=== PATIENT | female | born 1985 | race Caucasian/White ===

== ENCOUNTER 2016-09-07 11:23 | Emergency (ER) | payer BC ==
[2016-09-07 13:14] VITALS: BP 124/78
--- NOTE | 2016-09-07 14:04 | UC ---
Complaint Female HPI - HPI Summary HPI Summary: patient is complaining of pain in the LLQ, she has it quiet often, however, she is having some dysuria took lobo with mild relief, states she has had a lot of sex lately and feels like she has a lot of clear vaginal discharge. - History Of Current Complaint Chief Complaint: UCGU Stated Complaint: BURNING URINATION Time Seen by Provider: 09/07/16 13:22 Hx Obtained From: Patient Hx Last Menstrual Period: tubal Onset/Duration: Lasting Minutes Severity Initially: Mild Severity Currently: Mild Pain Intensity: 6 Pain Scale Used: 0-10 Numeric Character: Sharp, Cramping Aggravating Factor(s): Movement, Urination Associated Signs And Symptoms: Positive: Negative - Risk Factors Ectopic Risk Factor: Negative Ovarian Torsion Risk Factor: Negative - Allergies/Home Medications Allergies/Adverse Reactions: Allergies Allergy/AdvReac Type Severity Reaction Status Date / Time Clindamycin Allergy Severe Hives Verified 04/16/16 15:28 Home Medications: Home Medications Amoxicillin CAP* 500 mg PO TID 09/07/16 [History Confirmed 09/07/16] PMH/Surg Hx/FS Hx/Imm Hx Previously Healthy: Yes Endocrine History Of: Denies: Diabetes, Thyroid Disease Cardiovascular History Of: Denies: Cardiac Disorders, Hypertension Respiratory History Of: Denies: COPD, Asthma GI/ History Of: Denies: Ulcer - Surgical History Surgical History: Yes Surgery Procedure, Year, and Place: TONSILLECTOMY 2013, DENTAL EXTRACTION, TUBAL , TUBAL LIGATION, ECTOPIC SURGERY - Family History Known Family History: Positive: Hypertension - Social History Alcohol Use: Occasionally Alcohol Amount: 0-6/DAY Substance Use Type: None Smoking Status (MU): Never Smoked Tobacco Review of Systems Constitutional: Negative Skin: Negative Eyes: Negative ENT: Negative Respiratory: Negative Cardiovascular: Negative Gastrointestinal: Abdominal Pain Genitourinary: Negative Motor: Negative Neurovascular: Negative Musculoskeletal: Negative Neurological: Negative Psychological: Negative All Other Systems Reviewed And Are Negative: Yes Physical Exam Triage Information Reviewed: Yes Appearance: Well-Nourished, Ill-Appearing, Pain Distress Vital Signs: Initial Vital Signs Temp 98.4 F 09/07/16 13:09 Pulse 81 09/07/16 13:09 Resp 18 09/07/16 13:09 BP 124/78 09/07/16 13:09 Pulse Ox 100 09/07/16 13:09 Vital Signs Reviewed: Yes Eye Exam: Normal Eyes: Positive: Conjunctiva Clear ENT Exam: Normal ENT: Positive: Normal ENT inspection, Pharynx normal, TMs normal Dental Exam: Normal Neck exam: Normal Neck: Positive: Supple, Nontender, No Lymphadenopathy Respiratory Exam: Normal Respiratory: Positive: Chest non-tender, Lungs clear, Normal breath sounds Cardiovascular Exam: Normal Cardiovascular: Positive: RRR, No Murmur, Pulses Normal Abdominal Exam: Normal, Other - LLQ tenderness on palpation, no rebound tenderness, mild general lower abdominal pain Abdomen Description: Positive: No Organomegaly, Soft, Other: - no CVA tenderness Bowel Sounds: Positive: Present Musculoskeletal Exam: Normal Musculoskeletal: Positive: Strength Intact, ROM Intact, No Edema Neurological Exam: Normal Neurological: Positive: Alert, Muscle Tone Normal Psychological Exam: Normal Psychological: Positive: Normal Response To Family, Age Appropriate Behavior Skin Exam: Normal Complaint Female Dx - Course Course Of Treatment: hx obtained, exam performed, UA positive for nitrates, ketones and nitrates, she took azo so difficult to interpret all results, sent for culture. is negative. AFFirm was obtained du to increased vaginal discharge. pateint states she has frequent yeaset infections. medications given for UTI and yeast - Differential Dx/Diagnosis Differential Diagnosis/HQI/PQRI: Sexually Transmitted Disease, Ureteral Stone, Urinary Tract Infection Provider Diagnoses: UTI Discharge - Discharge Plan Condition: Stable Disposition: AGAINST MEDICAL ADVICE Patient Education Materials: Urinary Tract Infection in Women (ED)
== END 2016-09-07 14:20 | disposition home or self-care (01) ==
LOC: UCEAST 11:23
DX: N39.0 Urinary tract infection, site not specified (principal); Z32.02 Encounter for pregnancy test, result negative; Z88.1 Allergy status to other antibiotic agents
CPT/HCPCS: 81002; 81025; 87086; 87480; 87510; 87660; 99212; G0463

== ENCOUNTER 2016-10-23 15:24 | Emergency (ER) | payer BC ==
[2016-10-23 15:57] VITALS: BP 124/74
--- NOTE | 2016-10-23 17:26 | UC ---
Complaint Female HPI - HPI Summary HPI Summary: 30 y/o female c/o thick vaginal discharge, white in appearance. Symptoms have been, "ongoing for the past year. I get a yeast infection about once a month". Patient reports pelvic pain which radiates into the back; "the worst pain I've ever had when we have rough sex"; a increased vaginal discharge x 1 week. Reports the same sex partner x 4 years, states in a monogamous relationship. Denies fever, n/v. - History Of Current Complaint Chief Complaint: UCGU Stated Complaint: YEASTEY DISCHARGE Time Seen by Provider: 10/23/16 17:19 Hx Obtained From: Patient Hx Last Menstrual Period: 10/20/16 Onset/Duration: Gradual Onset - Allergies/Home Medications Allergies/Adverse Reactions: Allergies Allergy/AdvReac Type Severity Reaction Status Date / Time Clindamycin Allergy Severe Hives Verified 10/23/16 15:57 Home Medications: Home Medications NK [No Home Medications Reported] 10/23/16 [History Confirmed 10/23/16] PMH/Surg Hx/FS Hx/Imm Hx Previously Healthy: Yes Endocrine History Of: Denies: Diabetes, Thyroid Disease Cardiovascular History Of: Denies: Cardiac Disorders, Hypertension Respiratory History Of: Denies: COPD, Asthma GI/ History Of: Denies: Ulcer - Surgical History Surgical History: Yes Surgery Procedure, Year, and Place: TONSILLECTOMY 2013, DENTAL EXTRACTION, TUBAL , TUBAL LIGATION, ECTOPIC SURGERY - Family History Known Family History: Positive: Hypertension - Social History Lives: With Family Alcohol Use: Occasionally Alcohol Amount: 0-6/DAY Substance Use Type: None Smoking Status (MU): Never Smoked Tobacco - Immunization History Most Recent Influenza Vaccination: refused Review of Systems Constitutional: Negative Skin: Negative Eyes: Negative ENT: Negative Respiratory: Negative Cardiovascular: Negative Gastrointestinal: Abdominal Pain - Pelvic pain. Worsened before patient has a BM, Other - One hard formed BM every "other or few days". Genitourinary: Other Motor: Negative Neurovascular: Negative Musculoskeletal: Negative Neurological: Negative Psychological: Negative All Other Systems Reviewed And Are Negative: Yes Physical Exam Triage Information Reviewed: Yes Appearance: Well-Appearing, No Pain Distress, Well-Nourished Vital Signs: Initial Vital Signs Temp 99.2 F 10/23/16 15:47 Pulse 90 10/23/16 15:47 Resp 20 10/23/16 15:47 BP 124/74 10/23/16 15:47 Pulse Ox 100 10/23/16 15:47 Vital Signs Reviewed: Yes Eye Exam: Normal Eyes: Positive: Conjunctiva Clear ENT Exam: Normal ENT: Positive: Normal ENT inspection, Hearing grossly normal, Pharynx normal, TMs normal Dental Exam: Normal Dental: Negative: Cervical Lymphadenopathy Neck exam: Normal Neck: Positive: Supple, Nontender Respiratory Exam: Normal Respiratory: Positive: Chest non-tender, Lungs clear, Normal breath sounds, No respiratory distress Cardiovascular Exam: Normal Cardiovascular: Positive: RRR, No Murmur, Pulses Normal Abdominal Exam: Normal Abdomen Description: Positive: Nontender, No Organomegaly, Soft Bowel Sounds: Positive: Present Musculoskeletal Exam: Normal Musculoskeletal: Positive: Strength Intact, ROM Intact, No Edema Neurological Exam: Normal Neurological: Positive: Alert, Muscle Tone Normal, Fatigued Psychological Exam: Normal Skin Exam: Normal - Additional Comments Pelvic examination conducted with Affirm and GC Chlamydia endocervical swabs collected. Thin watery white-yellow discharge coming from the cervical os in present in the vaginal canal. Cervix is smooth and pink, no lesions noted. Pelvic tenderness upon bimanual examination. Rectal hemorrhoid located around 11 o'clock. Diagnostics - Laboratory Diagnostic Studies Completed/Ordered: Pelvic exam Complaint Female Dx - Differential Dx/Diagnosis Differential Diagnosis/HQI/PQRI: Endometriosis, Sexually Transmitted Disease, Urinary Tract Infection Provider Diagnoses: Pelvic pain. Vaginal discharge (suspected BV). Refer to OBGYN to r/o endometriosis Discharge - Discharge Plan Condition: Stable Disposition: HOME Patient Education Materials: Pelvic Pain (ED) [place] [facility] [place]] - As Soon As Possible (Establish OBGYN ad PCP [facility] for further testing) Kim Byrd [Primary Care Provider] - If Needed Additional Instructions: Increase fiber intake: water, fruits, vegetables, and wheat products. May take Metamucil or Colace as needed to regulate bowel movements. Follow up with OBGYN Follow up with a Primary Care provider to have blood work done. As discussed, seek immediate medical care for any symptoms of pelvic inflammatory disease. Will call you regarding lab results and possible treatment.
== END 2016-10-23 18:36 | disposition home or self-care (01) ==
LOC: UCEAST 15:24
DX: R10.2 Pelvic and perineal pain (principal); N89.8 Other specified noninflammatory disorders of vagina; Z88.1 Allergy status to other antibiotic agents
CPT/HCPCS: 81002; 87086; 87480; 87491; 87510; 87591; 87661; 99211; G0463

== ENCOUNTER 2016-11-30 07:27 | Emergency (ER) | payer BC ==
[2016-11-30 07:44] VITALS: BP 129/83
[2016-11-30] MEDS ORDERED: Ondansetron ODT TAB* 4 MG PO ONE (08:13)
[2016-11-30] MEDS ORDERED: Ondansetron INJ* 2 MG/ML VIAL IV ONE (08:16)
[2016-11-30] MEDS ORDERED: NS 0.9% 1000 ML* 1,000 ML IV ONE (08:16)
--- NOTE | 2016-11-30 15:09 | UC ---
Anurag Encarnacion Billy, scribed for Zayda Wallace DO on 11/30/16 at 0827 . General HPI - HPI Summary HPI Summary: Patient is a 31 year-old [place] [facility] [place] 3 days of sinus and chest congestion as well as diffuse abdominal pain, nausea, vomiting, and diarrhea. Her last episode of vomiting and diarrhea was at 0600 this morning , and she states she has had 3-4 episodes of vomiting and diarrhea each day. Vomiting is worse with PO intake. Patient also reports subjective fever, chills , and diaphoresis, as well as sore throat and earache. She also has had a productive cough with yellow-green sputum, although she says that the sputum is becoming clearer with time. Patient also comes in today with a complaint of a painful varicose vein on the right foot, which is a chronic issue. - History of Current Complaint Chief Complaint: UCGI Stated Complaint: V&D, CONGEST/ALSO VARICOSE VEIN Time Seen by Provider: 11/30/16 08:11 Hx Obtained From: Patient Onset/Duration: Gradual Onset Timing: Constant Onset Severity: Moderate Current Severity: Moderate Pain Intensity: 6 Pain Location at: diffuse abdominal pain Character: sore Aggravating: PO intake Associated Signs & Symptoms: Positive: Abdominal Pain, Cough, Diarrhea, Diaphoresis, Fever - subjective, Nausea, Vomiting. Negative: Back Pain, Chest Pain, Edema, Hematemesis, Hemoptysis, SOB, Wheezing - Allergy/Home Medications Allergies/Adverse Reactions: Allergies Allergy/AdvReac Type Severity Reaction Status Date / Time Clindamycin Allergy Severe Hives Verified 10/23/16 15:57 Home Medications: Home Medications Dextromethorphan-Phenylephrine [Daytime Cold & Flu Relief 10-5-325 mg] 1 cap PO 11/30/16 [History] Pseudoephedrine-Guaifenesin [Mucinex D 60-600 mg] 1 tab PO 11/30/16 [History] PMH/Surg Hx/FS Hx/Imm Hx Previously Healthy: Yes Endocrine History Of: Denies: Diabetes, Thyroid Disease Cardiovascular History Of: Denies: Cardiac Disorders, Hypertension Respiratory History Of: Denies: COPD, Asthma GI/ History Of: Denies: Ulcer - Surgical History Surgical History: Yes Surgery Procedure, Year, and Place: TONSILLECTOMY 2013, DENTAL EXTRACTION, TUBAL , TUBAL LIGATION, ECTOPIC SURGERY - Family History Known Family History: Negative: Cardiac Disease, Hypertension, Diabetes - Social History Occupation: Employed Full-time Lives: With Family Alcohol Use: Occasionally Alcohol Amount: 0-6/DAY Substance Use Type: None Smoking Status (MU): Never Smoked Tobacco - Immunization History Most Recent Influenza Vaccination: refused Review of Systems Constitutional: Fever, Chills, Other - diaphoresis Skin: Negative Eyes: Negative ENT: Sore Throat, Ear Ache Respiratory: Cough Cardiovascular: Negative Gastrointestinal: Abdominal Pain, Vomiting, Diarrhea, Other - nausea Genitourinary: Negative Motor: Negative Neurovascular: Negative Musculoskeletal: Other: - Tender varicose vein on the right foot. No swelling or tenderness of the calf. Neurological: Negative Psychological: Negative All Other Systems Reviewed And Are Negative: Yes Physical Exam Triage Information Reviewed: Yes Appearance: Well-Appearing, No Pain Distress, Well-Nourished Vital Signs: Initial Vital Signs Temp 97.9 F 11/30/16 07:36 Pulse 77 11/30/16 07:36 Resp 18 11/30/16 07:36 BP 129/83 11/30/16 07:36 Pulse Ox 97 11/30/16 07:36 Vital Signs Reviewed: Yes Eyes: Positive: Conjunctiva Clear. Negative: Discharge ENT: Positive: Normal ENT inspection, Pharynx normal, TMs normal, Other: - sinusis pain. Negative: Nasal congestion, Nasal drainage, TM bulging, TM dull, TM red, Tonsillar swelling, Tonsillar exudate, Trismus, Muffled/hoarse voice Neck: Positive: Supple, Nontender Respiratory: Positive: Lungs clear, Normal breath sounds, No respiratory distress, No accessory muscle use Cardiovascular: Positive: RRR, No Murmur Abdomen Description: Positive: Soft, McBurney's Point Tenderness, Other: - Tender to the right side of the abdomen with two points of greatest tenderness: 1) just above the umbilical level, and 2) McBurney's Point. Bowel Sounds: Positive: Hyperactive Musculoskeletal: Positive: Strength Intact, No Edema, Other: - Tender varicose vein on the right foot. Neurological: Positive: Alert, Muscle Tone Normal Psychological Exam: Normal Psychological: Positive: Age Appropriate Behavior Skin Exam: Normal, Other - Warm and dry skin. Course/Dx - Course Course Of Treatment: pt re-evaluated s/p 1st liter of fluids. feeling a little better. tenderness in rlq diminished but still present. pt re-eval s/p 2nd liter of fluids. pt feeling much better. no rlq or ruq tenderness. pt asked to jump. jumped up and down 3x with no discomfort. - Differential Dx - Multi-Symptom Differential Diagnoses: Urinary Tract Infection, Other - uri, gastroenteritis, bronchitis, appy Provider Diagnoses: gastroenteritis, sinusitis, bronchospasm, viral syndrom - Physician Notifications Discussed Patient Care With: [facility] Lizarraga [facility] [place] @ 0993: continue to administer IV fluids, and discharge home if the patient feels better. Discharge - Discharge Plan Condition: Stable Disposition: HOME Prescriptions: Albuterol HFA INHALER* [Ventolin HFA Inhaler*] 2 puff INH Q4H PRN #1 mdi PRN Reason: Sob/Wheezing Ondansetron TAB* [Zofran Tab*] 4 mg PO Q6H PRN #10 tab PRN Reason: Nausea/Vomiting guaiFENesin/CODIEN 100MG-10MG* [Robitussin AC 100Mg-10Mg*] 5 - 10 ml PO Q4H PRN #100 udc MDD 10ml PRN Reason: Cough Patient Education Materials: Sinusitis (ED), Upper Respiratory Infection (ED), Gastroenteritis (ED), Viral Syndrome (ED), Bronchospasm (ED) Forms: *Work Release Referrals: [facility] [place] [facility] [Outside] (FOLLOW UP IN 2 DAYS FOR RE-EVALUTION. Follow up sooner if symptoms worsen or new symptoms develop.) Additional Instructions: TRY USING THE NETTI POT IN THE MORNINGS DISCUSSED. YOU MUST ALWAYS USE CLEAN WATER. REMEMBER, POSTURE IS AN IMPORTANT FACTOR IN SINUS DRAINAGE. MOVE YOUR NECK, BREATHE. INHALED BRONCHODILATORS: You have received a prescription for an inhaled bronchodilator -- a medication which stimulates the airways in the lung to dilate. This improves the flow of air in asthma, bronchitis, and emphysema. These medicines have some similarity to adrenaline, and can cause similar side effects: shakiness, racing heart, and a sense of nervousness. These side effects decrease with time. Contact your doctor if these side effects are severe. Do not over-use the medicine. Too-frequent use of the inhaler may make it ineffective. Call your doctor if the inhaler is not controlling your symptoms at the prescribed doses. COUGH-SUPPRESSANT & EXPECTORANT MEDICATION: You are to use a cough medication as needed for relief of symptoms. This medicine is a combination of an expectorant (to make the mucous thinner and more easily "coughed up") and a cough suppressant (to reduce the frequency of coughing). The cough-suppressant medicine is related to narcotics. You may experience mild nausea and sleepiness. Some patients who are very sensitive to narcotics may have stomach pain from this medicine. Taking the medicine with food reduces these side effects. Do not drive or work with machinery until you know how this medicine affects you. The expectorant should have no side effects. Iodine-containing expectorants (such as organidin) should not be taken by persons with active thyroid disease unless approved by your doctor. Call the doctor if you develop shortness of breath, hives, rash, itching, lightheadedness, or severe nausea and vomiting. EXPECTORANT MEDICATION:continue mucinex An expectorant medicine has been prescribed. This type of drug makes mucous thinner, helping the sinuses, nose, and bronchial tubes to remain free of pus and mucous. Expectorants make a cough less severe and more comfortable, and help infected sinuses drain. In general, antihistamines defeat the purpose of the expectorant by making mucous thicker. They should be avoided unless specifically recommended by your physician. TRY JAYNE TEA FOR FOR YOUR NAUSEA AND VOMITING. IF JAYNE DOES NOT ADAQUATELY CONTROL YOUR SYMPTOMS, YOU CAN TRY ZOFRAN. REMEMBER, ZOFRAN CAN BE CONSTIPATING IF YOUR DIARRHEA IS NOT IMPROVING TOMORROW OR THE NEXT DAYS, PLEASE BRING A STOOL SAMPLE FOR TESTING. FOLLOW-UP CARE: You should establish with a private physician for follow-up care in 2 days. If you are unable to get a timely appointment, or if you are worsening, call us or return for re-evaluation. An additional resource available to assist in finding the appropriate physician for your health care needs is the Physician Referral Center. You may contact them by calling [phone]. The documentation as recorded by the Anurag prakash Billy accurately reflects the service I personally performed and the decisions made by me, Zayda Wallace DO.
== END 2016-11-30 11:53 | disposition home or self-care (01) ==
LOC: UCEAST 07:27
DX: K52.9 Noninfective gastroenteritis and colitis, unspecified (principal); J32.9 Chronic sinusitis, unspecified; J98.01 Acute bronchospasm; B34.9 Viral infection, unspecified; Z88.1 Allergy status to other antibiotic agents; Z32.02 Encounter for pregnancy test, result negative
CPT/HCPCS: 81003; 84702; 87502; 96360; 96374; 99212; G0463; J2405

== ENCOUNTER 2016-12-03 07:14 | Emergency (ER) | payer BC ==
--- NOTE | 2016-12-03 07:55 | UC ---
Respiratory Complaint HPI - HPI Summary HPI Summary: The patient comes in today for: 1. Cough: Onset: 6 days ago. Palliative/provocative: Cough medication, albuterol. Quality: Tightness Region: Lungs. Severity: 5/10 Time: Constant. Associated symptoms: Previous treatment: Seen 3 days ago. She was given an inhaler--albuterol. This helped "maybe a little bit." "My chest is still very tight and heavy." She was also given cough medication with codeine which also helped. Chest pain: She complains of a tightness--retrosternal. Heart disease: She denies any heart problems, or use of cocaine. She is not on control. Cough: Green and brown. Rhinitis: Clear. Fevers: Cold chills and hot flashes, but no temperature found at home. Asthma: Never had problems with this before. Previous lung disease: None. Wheezing: None. TB: The patient states that where she has worked in the past, she got yearly PPD tests and they were all normal. However, when she went to a new place, she had a "positive" skin test and "they freaked out--so I just took the medication for 9 months." * - History of Current Complaint Stated Complaint: CHEST CONGEST Time Seen by Provider: 12/03/16 07:50 Hx Obtained From: Patient Hx Last Menstrual Period: 11/09/16 ?: No - Allergies/Home Medications Allergies/Adverse Reactions: Allergies Allergy/AdvReac Type Severity Reaction Status Date / Time Clindamycin Allergy Severe Hives Verified 10/23/16 15:57 PMH/Surg Hx/FS Hx/Imm Hx Previously Healthy: Yes Endocrine History Of: Denies: Diabetes, Thyroid Disease, Hyperthyroidism, Hypothyroidism, Dyslipidemia Cardiovascular History Of: Denies: Cardiac Disorders, Hypertension, Pacemaker/ICD, Myocardial Infarction , Congestive Heart Failure, Atrial Fibrillation, Deep Vein Thrombosis, Bleeding Disorders Respiratory History Of: Denies: COPD, Asthma, Bronchitis, Pneumonia, Pulmonary Embolism GI/ History Of: Denies: Gastroesophageal Reflux, Ulcer, Gastrointestinal Bleed, Gall Bladder Disease, Kidney Stones, Diverticulitis, Renal Disease, Urosepsis Neurological History Of: Denies: TIA, CVA, Dementia, Seizures, Migraine Psychological History Of: Denies: Anxiety, Depression, Bipolar Disorder, Schizophrenia, Post Traumatic Stress Disorder Cancer History Of: Denies: Lung Cancer, Colorectal Cancer, Breast Cancer, Prostate Cancer, Cervical Cancer Other History Of: Negative For: HIV, Hepatitis B, Hepatitis C, Anticoagulant Therapy - Surgical History Surgical History: Yes Surgery Procedure, Year, and Place: TONSILLECTOMY 2013, DENTAL EXTRACTION,TUBAL LIGATION, ECTOPIC SURGERY - Family History Known Family History: Negative: Cardiac Disease, Hypertension, Diabetes - Social History Occupation: Employed Full-time Alcohol Use: Occasionally Alcohol Amount: 2 x month Substance Use Type: None Smoking Status (MU): Never Smoked Tobacco - Immunization History Most Recent Influenza Vaccination: refused Review of Systems Constitutional: Negative Skin: Rash - She has a varicose vein of the right foot. Eyes: Negative ENT: Negative Respiratory: Cough Cardiovascular: Chest Pain - Tightness. Gastrointestinal: Negative Genitourinary: Negative All Other Systems Reviewed And Are Negative: Yes Physical Exam Triage Information Reviewed: Yes Appearance: Well-Appearing, No Pain Distress, Well-Nourished Vital Signs: Initial Vital Signs Temp 99.0 F 12/03/16 07:23 Pulse 66 12/03/16 07:23 Resp 18 12/03/16 07:23 BP 119/70 12/03/16 07:23 Pulse Ox 99 12/03/16 07:23 Vital Signs Reviewed: Yes Eyes: Positive: Conjunctiva Clear. Negative: Discharge ENT: Positive: Hearing grossly normal. Negative: Pharyngeal erythema, Nasal congestion, Nasal drainage, TM bulging, TM dull, TM red, Tonsillar swelling, Tonsillar exudate Neck: Positive: Supple, Nontender, No Lymphadenopathy. Negative: Nuchal Rigidity Respiratory: Positive: Chest non-tender, No respiratory distress, No accessory muscle use, Rhonchi, Wheezing Cardiovascular: Positive: RRR, No Murmur Abdomen Description: Positive: Nontender, No Organomegaly, Soft. Negative: Distended, Guarding Musculoskeletal: Positive: Strength Intact, ROM Intact, No Edema Neurological: Positive: Alert, Muscle Tone Normal Psychological: Positive: Age Appropriate Behavior, Consolable Skin: Negative: rashes, breakdown UC Diagnostic Evaluation - Laboratory O2 Sat by Pulse Oximetry: 99 - Radiology Xray Interpretation: No Acute Changes Radiology Interpretation Completed By: Radiologist Re-Evaluation - Re-Evaluation First Eval Change: Improved - Patient states that the DuoNeb helped. She states that the tightness of her chest had improved. Respiratory Course/Dx - Course Course Of Treatment: Patient told of the negative CXR. Treatment options were discussed. - Differential Dx/Diagnosis Differential Diagnosis/HQI/PQRI: Bronchitis, Sinusitis Provider Diagnoses: Bronchitis. Bronchospasm. Discharge - Discharge Plan Condition: Stable Disposition: HOME Patient Education Materials: Acute Bronchitis (ED), Sinusitis (ED), Bronchospasm (ED) Forms: *Work Release Referrals: No Primary Care Phys,NOPCP [Primary Care Provider] - 1 Week (Please see your primary care provider in about three days to see how well you are doing. If you don't have a primary care provider, please contact the physician referral service. If you can't get in timely, please you may come back to see us until you can. If you get worse, please be seen sooner by us or the ER.) [facility] [place] [facility] [Outside]
[2016-12-03] MEDS ORDERED: Albuterol/Ipratropium NEB.SOL* Albuterol 2.5 MG/Ipratropium 0.5 MG 3 ML INH ONE (08:04)
--- NOTE | 2016-12-03 09:00 | RAD ---
INDICATION: Chest tightness. Cough. Pneumonia. COMPARISON: March 15, 2016 TECHNIQUE: PA and lateral dual-energy views were obtained. FINDINGS: Bones/Soft Tissues: There are no acute bony findings. Cardiomediastinal: The cardiomediastinal silhouette is normal. Lungs: There are no infiltrates. Pleura: There are no pleural effusions. Other: None IMPRESSION: NO ACTIVE DISEASE.
[2016-12-03 09:19] VITALS: BP 116/56
== END 2016-12-03 09:49 | disposition home or self-care (01) ==
LOC: UCEAST 07:14
DX: J40 Bronchitis, not specified as acute or chronic (principal); J98.01 Acute bronchospasm
CPT/HCPCS: 71020; 99212; A9270-GY; G0463

== ENCOUNTER 2016-12-13 15:28 | Emergency (ER) | payer BC ==
[2016-12-13 15:58] VITALS: BP 110/63
[2016-12-13] MEDS ORDERED: Fluorescein Sodium TOPICAL* 1 MG TEST ONE (16:11)
[2016-12-13] MEDS ORDERED: Tetracaine 0.5% OPTH.SOL 15ML* BTL ONE (16:11)
[2016-12-13] MEDS ORDERED: BSS OPTH.SOL* BTL ONE (16:12)
--- NOTE | 2016-12-13 16:34 | UC ---
Eye Complaint HPI - HPI Summary HPI Summary: THREE DAYS OF LEFT EYE REDNESS AND DISCHARGE THIS MORNING WELL IRRITATION OF LEFT EYE. CURRENTLY ON DOXYCYCLINE FOR SINUS INFECTION. NO FEVER. NO CONTACT LENS USE. - History of Current Complaint Chief Complaint: UCEye Stated Complaint: EYE IRRITATION Time Seen by Provider: 12/13/16 16:03 Hx Obtained From: Patient Hx Last Menstrual Period: 12/09/16 Onset/Duration: Sudden Onset, Lasting Days, Still Present Severity Initially: Mild Severity Currently: Moderate Location of Injury: Conjunctiva Character: Dull Aggravating Factor(s): Eye Drops Alleviating Factor(s): Nothing Associated Signs And Symptoms: Positive: Drainage (Clear), Drainage (Purulent) - Risk Factors Penetrating Injury Risk Factor: Negative Acute Glaucoma Risk Factors: Negative - Allergies/Home Medications Allergies/Adverse Reactions: Allergies Allergy/AdvReac Type Severity Reaction Status Date / Time Clindamycin Allergy Severe Hives Verified 12/13/16 15:58 Home Medications: Home Medications Propylene Glycol (Ophth) [Systane Balance Restorati] 1 BOTH EYES PRN 12/13/16 [ History] PMH/Surg Hx/FS Hx/Imm Hx Previously Healthy: Yes Endocrine History Of: Denies: Diabetes, Thyroid Disease, Hyperthyroidism, Hypothyroidism, Dyslipidemia Cardiovascular History Of: Denies: Cardiac Disorders, Hypertension, Pacemaker/ICD, Myocardial Infarction , Congestive Heart Failure, Atrial Fibrillation, Deep Vein Thrombosis, Bleeding Disorders Respiratory History Of: Denies: COPD, Asthma, Bronchitis, Pneumonia, Pulmonary Embolism GI/ History Of: Denies: Gastroesophageal Reflux, Ulcer, Gastrointestinal Bleed, Gall Bladder Disease, Kidney Stones, Diverticulitis, Renal Disease, Urosepsis Neurological History Of: Denies: TIA, CVA, Dementia, Seizures, Migraine Psychological History Of: Denies: Anxiety, Depression, Bipolar Disorder, Schizophrenia, Post Traumatic Stress Disorder Cancer History Of: Denies: Lung Cancer, Colorectal Cancer, Breast Cancer, Prostate Cancer, Cervical Cancer Other History Of: Negative For: HIV, Hepatitis B, Hepatitis C, Anticoagulant Therapy - Surgical History Surgical History: Yes Surgery Procedure, Year, and Place: TONSILLECTOMY 2013, DENTAL EXTRACTION,TUBAL LIGATION, ECTOPIC SURGERY - Family History Known Family History: Negative: Cardiac Disease, Hypertension, Diabetes - Social History Occupation: Employed Full-time Lives: With Family Alcohol Use: Occasionally Alcohol Amount: 2 x month Substance Use Type: None Smoking Status (MU): Never Smoked Tobacco - Immunization History Most Recent Influenza Vaccination: refused Review of Systems Constitutional: Negative Skin: Negative Eyes: Drainage, Eye Redness ENT: Negative Respiratory: Negative Cardiovascular: Negative Gastrointestinal: Negative Genitourinary: Negative Motor: Negative Neurovascular: Negative Musculoskeletal: Negative Neurological: Negative Psychological: Negative All Other Systems Reviewed And Are Negative: Yes Physical Exam Triage Information Reviewed: Yes Appearance: Well-Appearing, No Pain Distress, Well-Nourished Vital Signs: Initial Vital Signs Temp 98.3 F 12/13/16 15:47 Pulse 74 12/13/16 15:47 Resp 18 12/13/16 15:47 BP 110/63 12/13/16 15:47 Pulse Ox 100 12/13/16 15:47 Eyes: Positive: Conjunctiva Inflamed - LATERAL CONJUNCTIVA, Other: - FLUORESCEIN UPTAKE AT 9 OCLOCK ENT Exam: Normal ENT: Positive: Normal ENT inspection, Hearing grossly normal, Pharynx normal, TMs normal Dental Exam: Normal Neck exam: Normal Neck: Positive: Supple, Nontender Respiratory Exam: Normal Respiratory: Positive: Chest non-tender, Lungs clear, Normal breath sounds, No respiratory distress, No accessory muscle use Cardiovascular Exam: Normal Cardiovascular: Positive: RRR, No Murmur Abdominal Exam: Normal Musculoskeletal Exam: Normal Musculoskeletal: Positive: Strength Intact, ROM Intact Neurological Exam: Normal Psychological Exam: Normal Skin Exam: Normal Eye Complaint Course/Dx - Differential Dx/Diagnosis Differential Diagnosis/HQI/PQRI: Conjunctivitis, Corneal Abrasion Provider Diagnoses: LEFT EYE CONJUNCTIVITIS. LEFT EYE CORNEAL ABRASION Discharge - Discharge Plan Condition: Stable Disposition: HOME Prescriptions: Tobramycin 0.3% OPHTH.ROSSI* 1 drop LEFT EYE Q4H #1 btl Patient Education Materials: Corneal Abrasion (ED), Conjunctivitis (ED) Forms: *Work Release Referrals: [facility] [place] PHYSICIAN REFERRAL [Outside] No Primary Care Phys,NOPCP [Primary Care Provider] -
== END 2016-12-13 16:30 | disposition home or self-care (01) ==
LOC: UCEAST 15:28
DX: H10.32 Unspecified acute conjunctivitis, left eye (principal); S05.02XA Injury of conjunctiva and corneal abrasion without foreign body, left eye, initial encounter; X58.XXXA Exposure to other specified factors, initial encounter; Y93.9 Activity, unspecified; Y92.9 Unspecified place or not applicable; Z88.1 Allergy status to other antibiotic agents
CPT/HCPCS: 99212; A9270-GY; G0463

== ENCOUNTER 2016-12-30 17:17 | Emergency (ER) | payer BC ==
[2016-12-30 18:04] VITALS: BP 128/78
--- NOTE | 2016-12-30 19:22 | UC ---
Complaint Female HPI - HPI Summary HPI Summary: PT HAS BEEN ON BOTH AUGMENTIN AND DOXYCYCLINE FOR RESPIRATORY INFECTION IN LAST MONTH. 3 DAYS AGO DEVELOPS THICK, WHITE VAGINAL DISCHARGE AND VAGINAL ITCH/ IRRITATION. TOOK 1 DIFLUCAN 150MG TABLET - NO IMPROVEMENT. SX ACTUALLY WORSENED. NO FEVER OR URINARY SX. - History Of Current Complaint Chief Complaint: UCGU Stated Complaint: YEAST DISCHARGE Time Seen by Provider: 12/30/16 19:02 Hx Obtained From: Patient Hx Last Menstrual Period: 12/06/16 Onset/Duration: Gradual Onset, Lasting Days, Still Present Timing: Constant Severity Initially: Moderate Severity Currently: Moderate Pain Intensity: 7 Pain Scale Used: 0-10 Numeric Character: Burning Aggravating Factor(s): Movement Alleviating Factor(s): Nothing Associated Signs And Symptoms: Positive: Vaginal Discharge. Negative: Fever, Back Pain, Nausea, Vomiting(# Of Episodes =), Genital Swelling, Genital Blisters - Allergies/Home Medications Allergies/Adverse Reactions: Allergies Allergy/AdvReac Type Severity Reaction Status Date / Time Clindamycin Allergy Severe Hives Verified 12/13/16 15:58 PMH/Surg Hx/FS Hx/Imm Hx Previously Healthy: Yes Endocrine History Of: Denies: Diabetes, Thyroid Disease, Hyperthyroidism, Hypothyroidism, Dyslipidemia Cardiovascular History Of: Denies: Cardiac Disorders, Hypertension, Pacemaker/ICD, Myocardial Infarction , Congestive Heart Failure, Atrial Fibrillation, Deep Vein Thrombosis, Bleeding Disorders Respiratory History Of: Denies: COPD, Asthma, Bronchitis, Pneumonia, Pulmonary Embolism GI/ History Of: Denies: Gastroesophageal Reflux, Ulcer, Gastrointestinal Bleed, Gall Bladder Disease, Kidney Stones, Diverticulitis, Renal Disease, Urosepsis Neurological History Of: Denies: TIA, CVA, Dementia, Seizures, Migraine Psychological History Of: Denies: Anxiety, Depression, Bipolar Disorder, Schizophrenia, Post Traumatic Stress Disorder Cancer History Of: Denies: Lung Cancer, Colorectal Cancer, Breast Cancer, Prostate Cancer, Cervical Cancer Other History Of: Negative For: HIV, Hepatitis B, Hepatitis C, Anticoagulant Therapy - Surgical History Surgical History: Yes Surgery Procedure, Year, and Place: TONSILLECTOMY 2013, DENTAL EXTRACTION,TUBAL LIGATION, ECTOPIC SURGERY - Family History Known Family History: Negative: Cardiac Disease, Hypertension, Diabetes - Social History Alcohol Use: Occasionally Alcohol Amount: 2 x month Substance Use Type: None Smoking Status (MU): Never Smoked Tobacco - Immunization History Most Recent Influenza Vaccination: refused Review of Systems Constitutional: Negative Skin: Negative Respiratory: Negative Cardiovascular: Negative Gastrointestinal: Negative Genitourinary: Other - VAGINAL DISCHARGE AND IRRITATION All Other Systems Reviewed And Are Negative: Yes Physical Exam Triage Information Reviewed: Yes Appearance: Well-Appearing, No Pain Distress - BUT LOOKS UNCOMFORTABLE, Well- Nourished Vital Signs: Initial Vital Signs Temp 98.1 F 12/30/16 17:56 Pulse 87 12/30/16 17:56 Resp 18 12/30/16 17:56 BP 128/78 12/30/16 17:56 Pulse Ox 100 12/30/16 17:56 Vital Signs Reviewed: Yes Eyes: Positive: Conjunctiva Clear ENT: Positive: Hearing grossly normal Respiratory: Positive: No respiratory distress, No accessory muscle use Cardiovascular: Positive: Pulses Normal Abdomen Description: Positive: Soft Musculoskeletal: Positive: No Edema Neurological: Positive: Alert Psychological: Positive: Age Appropriate Behavior Skin: Negative: rashes UC Physical Exam Vital Signs On Initial Exam: Initial Vitals Temp Pulse Resp BP Pulse Ox 98.1 F 87 18 128/78 100 12/30/16 17:56 12/30/16 17:56 12/30/16 17:56 12/30/16 17:56 12/30/16 17:56 - Genitalia Exam Female Genitourinary: Normal External Exam, Other - COPIOUS THICK, WHITE DISCHARGE IN VAGINAL VAULT. DIFFUSELY TENDER WITH BIMANUAL EXAM Complaint Female Dx - Differential Dx/Diagnosis Provider Diagnoses: VULVOVAGINAL CANDIDIASIS Discharge - Discharge Plan Condition: Stable Disposition: HOME Prescriptions: Fluconazole [Fluconazole 200 mg tab] 200 mg PO DAILY #14 tab Patient Education Materials: Vulvovaginal Candidiasis (ED) Referrals: Kim Hickman MD [Medical Doctor] - If Needed Additional Instructions: GIVEN YOUR LACK OF RESPONSE TO A ONE TIME DOSE OF DIFLUCAN WILL TRY A DAILY DOSE. FOLLOW-UP WITH COLOR CONTROL OPERATOR IF SYMPTOMS ARE NOT IMPROVING. SWABS SENT TO TEST FOR OTHER FORMS OF VAGINITIS AND GONORRHEA/CHLAMYDIA. WE WILL CALL YOU WITH ANY ABNORMAL RESULTS.
== END 2016-12-30 19:42 | disposition home or self-care (01) ==
LOC: UCEAST 17:17
DX: B37.3 Candidiasis of vulva and vagina (principal); Z88.1 Allergy status to other antibiotic agents
CPT/HCPCS: 87480; 87491; 87510; 87591; 87661; 99212; G0463

== ENCOUNTER 2017-02-02 15:19 | Emergency (ER) | payer BC ==
[2017-02-02 15:46] VITALS: BP 122/64
--- NOTE | 2017-02-02 16:16 | UC ---
Ear Complaint HPI - HPI Summary HPI Summary: Patient presents with complaints of ear pain, throat pain x 3 days, worse when she bends down. No change in hearing. States she is able to eat, drink and handle her own secretion. Denies fever,chills,nausea, vomiting. - History of Current Complaint Chief Complaint: UCEar Stated Complaint: DOUBLE EAR INFECTION Time Seen by Provider: 02/02/17 15:52 Hx Obtained From: Patient Hx Last Menstrual Period: 02/01/17 Onset/Duration: Gradual Onset, Lasting Days Severity Initially: Moderate Severity Currently: Moderate Aggravating Factors: Nothing - bending down/over. - Allergies/Home Medications Allergies/Adverse Reactions: Allergies Allergy/AdvReac Type Severity Reaction Status Date / Time Clindamycin Allergy Severe Hives Verified 02/02/17 15:58 PMH/Surg Hx/FS Hx/Imm Hx Previously Healthy: Yes Endocrine History: Other - deviated septum Other Endocrine History: deviated septum Other History Of: Negative For: HIV, Hepatitis B, Hepatitis C, Anticoagulant Therapy - Surgical History Surgical History: Yes Surgery Procedure, Year, and Place: TONSILLECTOMY 2013, DENTAL EXTRACTION,TUBAL LIGATION, ECTOPIC SURGERY - Family History Known Family History: Negative: Cardiac Disease, Hypertension, Diabetes - Social History Alcohol Use: Occasionally Alcohol Amount: 2 x month Substance Use Type: None Smoking Status (MU): Never Smoked Tobacco - Immunization History Most Recent Influenza Vaccination: refused Review of Systems ENT: Sore Throat, Ear Ache All Other Systems Reviewed And Are Negative: Yes Physical Exam Triage Information Reviewed: Yes Appearance: Well-Appearing Vital Signs: Initial Vital Signs Temp 98.4 F 02/02/17 15:38 Pulse 107 02/02/17 15:38 Resp 18 02/02/17 15:38 BP 122/64 02/02/17 15:38 Pulse Ox 98 02/02/17 15:38 Vital Signs Reviewed: Yes Eye Exam: Normal ENT Exam: Normal Neck exam: Normal Respiratory Exam: Normal Cardiovascular Exam: Normal Abdominal Exam: Normal Musculoskeletal Exam: Normal Neurological Exam: Normal Ear Complaint Course/Dx - Course Course Of Treatment: Patient presents with complaints of ear and throat pain x 3 days. Clinical examination is benign.There is no evidence of otitis media, or strep throat. I feel her symtpoms are related to a deviated septum and I recommend that she take an antihistimine and decongestant and follow up with ENT. At the time of discharge the patient is stable with normal vital signs. - Differential Dx/Diagnosis Differential Diagnosis/HQI/PQRI: Other - deviated septum earache Provider Diagnoses: deviated septum. earache Discharge - Discharge Plan Condition: Stable Disposition: HOME Patient Education Materials: Earache (ED) Referrals: No Primary Care Phys,NOPCP [Primary Care Provider] - John Thorpe MD [Medical Doctor] -
== END 2017-02-02 16:28 | disposition home or self-care (01) ==
LOC: UCEAST 15:19
DX: H92.03 Otalgia, bilateral (principal); J34.2 Deviated nasal septum
CPT/HCPCS: 99211; G0463

== ENCOUNTER 2017-04-22 18:21 | Emergency (ER) | payer BC ==
[2017-04-22 18:45] VITALS: BP 113/60
--- NOTE | 2017-04-22 18:52 | UC ---
Lower Extremity/Ankle HPI - HPI Summary HPI Summary: 31 YEAR OLD FEMALE PRESENTS WITH COMPLAINS OF RIGHT KNEE PAIN AND LEFT THIGH HEMATOMA SECONDARY TO A FALL . - History of Current Complaint Chief Complaint: UCLowerExtremity Stated Complaint: KNEE INJURY Time Seen by Provider: 04/22/17 18:52 Hx Obtained From: Patient Hx Last Menstrual Period: April 20 Onset/Duration: Sudden Onset, Lasting Hours Severity Currently: Moderate Pain Scale Used: 0-10 Numeric - 7 Aggravating Factor(s): Standing, Ambulation Alleviating Factor(s): Rest - Allergies/Home Medications Allergies/Adverse Reactions: Allergies Allergy/AdvReac Type Severity Reaction Status Date / Time Clindamycin Allergy Severe Hives Verified 02/02/17 15:58 Home Medications: Home Medications Acetaminophen [Tylenol] 325 mg PO 04/22/17 [History] Ibuprofen [Advil] 800 mg PO 04/22/17 [History] PMH/Surg Hx/FS Hx/Imm Hx Previously Healthy: Yes Other History Of: Negative For: HIV, Hepatitis B, Hepatitis C, Anticoagulant Therapy - Surgical History Surgical History: Yes Surgery Procedure, Year, and Place: TONSILLECTOMY 2012, DENTAL EXTRACTION,TUBAL LIGATION, ECTOPIC SURGERY - Family History Known Family History: Negative: Cardiac Disease, Hypertension, Diabetes - Social History Alcohol Use: Occasionally Alcohol Amount: 2 x month Substance Use Type: None Smoking Status (MU): Never Smoked Tobacco - Immunization History Most Recent Influenza Vaccination: refused Review of Systems Constitutional: Negative Skin: Negative Eyes: Negative ENT: Negative Respiratory: Negative Cardiovascular: Negative Gastrointestinal: Negative Genitourinary: Negative Motor: Negative Neurovascular: Negative Musculoskeletal: Myalgia, Other: - RIGHT KNEE PAIN Neurological: Negative Psychological: Negative All Other Systems Reviewed And Are Negative: Yes Physical Exam Triage Information Reviewed: Yes Vital Signs: Initial Vital Signs Temp 36.6 C 04/22/17 18:38 Pulse 86 04/22/17 18:38 Resp 16 04/22/17 18:38 BP 113/60 04/22/17 18:38 Pulse Ox 99 04/22/17 18:38 Vital Signs Reviewed: Yes Eye Exam: Normal ENT Exam: Normal Dental Exam: Normal Neck exam: Normal Neck: Positive: 1 Respiratory Exam: Normal Cardiovascular Exam: Normal Abdominal Exam: Normal Musculoskeletal: Positive: Other: - RIGHT KNEE PAIN Neurological Exam: Normal Psychological Exam: Normal Skin Exam: Normal Lower Extremity Course/Dx - Course Course Of Treatment: RIGHT KNEE PAIN/SWELLING - Differential Dx/Diagnosis Provider Diagnoses: RIGHT KNEE PAIN/SWELLING Discharge - Discharge Plan Condition: Stable Disposition: HOME Prescriptions: Meloxicam [Mobic] 7.5 mg PO BID #30 tab Patient Education Materials: Knee Pain (ED) Forms: *Work Release Referrals: Danelle Huntley MD [Medical Doctor] - No Primary Care Phys,NOPCP [Primary Care Provider] -
--- NOTE | 2017-04-22 19:30 | RAD ---
HISTORY: Right knee blunt trauma COMPARISONS: None VIEWS: 5, Frontal, lateral, axial, and oblique views of the right knee FINDINGS: BONE DENSITY: Normal. BONES: There is no displaced fracture. JOINTS: There is no arthropathy. There is no suprapatellar joint effusion or lipohemarthrosis. ALIGNMENT: There is no dislocation. SOFT TISSUES: Unremarkable. OTHER FINDINGS: None. IMPRESSION: NO ACUTE OSSEOUS INJURY. IF SYMPTOMS PERSIST, RECOMMEND REPEAT IMAGING.
== END 2017-04-22 20:19 | disposition home or self-care (01) ==
LOC: UCEAST 18:21
DX: M25.561 Pain in right knee (principal); M25.461 Effusion, right knee; Z88.1 Allergy status to other antibiotic agents
CPT/HCPCS: 99211; G0463

== ENCOUNTER 2017-05-10 08:03 | Emergency (ER) | payer BC ==
[2017-05-10 08:12] VITALS: BP 117/67
--- NOTE | 2017-05-10 09:06 | ED ---
Lower Extremity - HPI Summary HPI Summary: Patient presents to the ED with CC of right medial knee pain and tooth pain. She states her knee has been hurting since she hit the coffee table 2 weeks ago. She was seen in the UC and xrays were taken with no apparent fx. She states she was referred to ortho for an MRI, but has not followed up yet. She has been icing, using ibuprofen and elevating it without improvement. She states she works 16 hour shifts and is worse with ambulation. She also notes to left upper dental pain which has been present for several months after chipping the side of her tooth. She has not followed up with a dentist. Denies any signs of infection. Denies fevers, sweats or chills. - History of Current Complaint Chief Complaint: UCLowerExtremity Stated Complaint: KNEE PAIN DENTAL ISSUE Time Seen by Provider: 05/10/17 08:23 Hx Obtained From: Patient Hx Last Menstrual Period: 04/09/17 Mechanism Of Injury: Twisted Onset of Pain: Days Onset/Duration: Weeks Severity Initially: Moderate Severity Currently: Moderate Pain Intensity: 8 Pain Scale Used: 0-10 Numeric Timing: Constant Location: Is Discrete @ - medial left knee Character Of Pain: Aching Aggravating Factor(s): Movement, Weight Bearing Alleviating Factor(s): Rest Able to Bear Weight: Yes - Risk Factors Gout Risk Factors: Negative DVT Risk Factors: Negative Septic Arthritis Risk Factor: Negative - Allergies/Home Medications Allergies/Adverse Reactions: Allergies Allergy/AdvReac Type Severity Reaction Status Date / Time Clindamycin Allergy Severe Hives Verified 05/10/17 08:05 PMH/Surg Hx/FS Hx/Imm Hx Previously Healthy: Yes Endocrine/Hematology History: Denies: Hx Anticoagulant Therapy, Hx Diabetes, Hx Thyroid Disease Cardiovascular History: Denies: Hx Congestive Heart Failure, Hx Deep Vein Thrombosis, Hx Hypertension , Hx Myocardial Infarction, Hx Pacemaker/ICD Respiratory History: Denies: Hx Asthma, Hx Chronic Obstructive Pulmonary Disease (COPD), Hx Lung Cancer, Hx Pneumonia, Hx Pulmonary Embolism GI History: Denies: Hx Gall Bladder Disease, Hx Gastrointestinal Bleed, Hx Ulcer, Hx Urosepsis History: Denies: Hx Kidney Stones, Hx Renal Disease Neurological History: Denies: Hx Dementia, Hx Migraine, Hx Seizures, Hx Transient Ischemic Attacks (TIA) Psychiatric History: Denies: Hx Anxiety, Hx Depression, Hx Schizophrenia, Hx Bipolar Disorder - Surgical History Surgery Procedure, Year, and Place: TONSILLECTOMY 2013, DENTAL EXTRACTION,TUBAL LIGATION, ECTOPIC SURGERY - Immunization History Hx Pertussis Vaccination: No Immunizations Up to Date: Unable to Obtain/Confirm Infectious Disease History: No Infectious Disease History: Denies: Hx Clostridium Difficile, Hx Hepatitis, Hx Human Immunodeficiency Virus (HIV), Hx of Known/Suspected MRSA, Hx Shingles, Hx Tuberculosis, Hx Known/ Suspected VRE, Hx Known/Suspected VRSA, History Other Infectious Disease, Traveled Outside the [place] in Last 30 Days - Family History Known Family History: Negative: Cardiac Disease, Hypertension, Diabetes - Social History Occupation: Employed Full-time Lives: Alone Alcohol Use: Occasionally Alcohol Amount: 2 x month Hx Substance Use: No Substance Use Type: Reports: None Hx Tobacco Use: No Smoking Status (MU): Never Smoked Tobacco Review of Systems Constitutional: Negative Negative: Fever, Chills, Fatigue Positive: Dental Pain Cardiovascular: Negative Negative: Palpitations, Chest Pain Negative: Shortness Of Breath, Cough Positive: no symptoms reported, see HPI Positive: Arthralgia - medial left knee pain Neurological: Negative Psychological: Normal All Other Systems Reviewed And Are Negative: Yes Physical Exam Triage Information Reviewed: Yes Vital Signs On Initial Exam: Initial Vitals Temp Pulse Resp BP Pulse Ox 98 F 78 18 117/67 99 05/10/17 08:08 05/10/17 08:08 05/10/17 08:08 05/10/17 08:08 05/10/17 08:08 Vital Signs Reviewed: Yes Appearance: Positive: Well-Appearing, Well-Nourished Skin: Positive: Warm, Skin Color Reflects Adequate Perfusion Eyes: Positive: Normal, [place] Dental: Positive: Dental Fracture @ - upper canine Neck: Positive: Supple, No Lymphadenopathy Respiratory/Lung Sounds: Positive: Clear to Auscultation, Breath Sounds Present Cardiovascular: Positive: Normal, Pulses are Symmetrical in both Upper and Lower Extremities Musculoskeletal: Positive: Normal, Strength/ROM Intact Neurological: Positive: Speech Normal Psychiatric: Positive: Normal, Affect/Mood Appropriate AVPU Assessment: Alert - [place] Coma Scale Best Eye Response: 4 - Spontaneous Best Motor Response: 6 - Obeys Commands Best Verbal Response: 5 - Oriented Diagnostics - Vital Signs Vital Signs Temp Pulse Resp BP Pulse Ox 05/10/17 08:08 98 F 78 18 117/67 99 - Laboratory Lab Statement: Any lab studies that have been ordered have been reviewed, and results considered in the medical decision making process. Lower Extremity Course/Dx - Course Course Of Treatment: Patient was evaluted for knee pain. Xrays taken on last visit. She is encouraged to follow up with Dr. Huntley for further evaluation. She is given pain management and dentist referrals. Note given for work. - Diagnoses Differential Diagnosis/HQI/PQRI: Positive: Fracture (Closed), Fracture (Open), Sprain Provider Diagnoses: Knee pain, Toothache Discharge - Discharge Plan Condition: Stable Disposition: HOME Prescriptions: Hydrocodone-Acetaminophen [Hydrocodone/Acetaminophen 10-325 mg] 1 tab PO Q6H # 12 tab MDD 4 Patient Education Materials: Knee Pain (ED), Toothache (ED) Forms: *Work Release Referrals: [facility] [Provider Group] [facility] [Provider Group] Danelle Huntley MD [Medical Doctor] - No Primary Care Phys,NOPCP [Primary Care Provider] - Additional Instructions: Follow up with dentist Obtain a knee brace Follow up with ortho Ibuprofen 600mg three times daily For pain not well controlled with ibuprofen, you may take the [employer] - Images Dental: 1 - cracked
== END 2017-05-10 09:02 | disposition home or self-care (01) ==
LOC: UCEAST 08:03
DX: M25.561 Pain in right knee (principal); K08.89 Other specified disorders of teeth and supporting structures
CPT/HCPCS: 99212; G0463

== ENCOUNTER 2017-09-19 09:19 | Emergency (ER) | payer BC ==
[2017-09-19 09:51] VITALS: BP 127/72
[2017-09-19] MEDS ORDERED: Ondansetron ODT TAB* 4 MG PO ONE (11:40)
--- NOTE | 2017-09-19 12:17 | RAD ---
HISTORY: Cough, fever COMPARISONS: December 03, 2016 VIEWS: 4: Frontal dual-energy and lateral views of the chest. FINDINGS: CARDIOMEDIASTINAL SILHOUETTE: The cardiomediastinal silhouette is normal. AUTUMN: The autumn are normal. PLEURA: The costophrenic angles are sharp. No pleural abnormalities are noted. LUNG PARENCHYMA: The lungs are clear. ABDOMEN: The upper abdomen is clear. There is no subphrenic gas. BONES AND SOFT TISSUES: No bone or soft tissue abnormalities are noted. OTHER: None. IMPRESSION: NO ACTIVE CARDIOPULMONARY DISEASE.
--- NOTE | 2017-09-19 13:25 | UC ---
Viet Encarnacion Stephanie, scribed for Jean Marie Sy MD on 09/19/17 at 1215 . FLU HPI - HPI Summary HPI Summary: The pt is a 31 y/o F presenting to the ED with N/V/D that began on 09/08/17. Symptoms include CP, productive cough, chills, diaphoresis and tooth pain that radiates into the ear and baptist. Pt denies abd pain. The pt reports that she is on abx for her tooth pain. Pt reports that her child was previously diagnosed with RSV. - History of Current Complaint Chief Complaint: UCRespiratory Stated Complaint: DIARRHEA VOMITING CHILLS SORE THROAT CONGESTION Time Seen by Provider: 09/19/17 11:29 Hx Obtained From: Patient Hx Last Menstrual Period: 08/11/17 ?: No Onset/Duration: Lasting Weeks - 2, Still Present Pain Intensity: 0 Pain Scale Used: 0-10 Numeric Associated Signs & Symptoms: Negative: Fever - Allergy/Home Medications Allergies/Adverse Reactions: Allergies Allergy/AdvReac Type Severity Reaction Status Date / Time Clindamycin Allergy Severe Hives Verified 09/19/17 09:46 Home Medications: Home Medications Amoxicillin/Clavulanate TAB* [Augmentin TAB 875*] 875 mg PO BID 09/19/17 [ History Confirmed 09/19/17] PMH/Surg Hx/FS Hx/Imm Hx Previously Healthy: Yes - Denies medical history. Other History Of: Negative For: HIV, Hepatitis B, Hepatitis C, Anticoagulant Therapy - Surgical History Surgical History: Yes Surgery Procedure, Year, and Place: TONSILLECTOMY 2013, DENTAL EXTRACTION,TUBAL LIGATION, ECTOPIC SURGERY - Family History Known Family History: Negative: Cardiac Disease, Hypertension, Diabetes - Social History Occupation: Employed Full-time Lives: With Family Alcohol Use: Occasionally Alcohol Amount: 2 x month Substance Use Type: None Smoking Status (MU): Never Smoked Tobacco - Immunization History Most Recent Influenza Vaccination: refused Review of Systems Constitutional: Chills Skin: Other - diaphoresis Eyes: Negative ENT: Dental Pain - L: radiates to L ear and baptist Respiratory: Cough - productive Cardiovascular: Chest Pain Gastrointestinal: Negative Genitourinary: Negative Motor: Negative Neurovascular: Negative Musculoskeletal: Negative Neurological: Negative Psychological: Negative All Other Systems Reviewed And Are Negative: Yes Physical Exam Triage Information Reviewed: Yes Vital Signs: Initial Vital Signs Temp 99.5 F 09/19/17 09:48 Pulse 87 09/19/17 09:48 Resp 16 09/19/17 09:48 BP 127/72 09/19/17 09:48 Pulse Ox 100 09/19/17 09:48 Vital Signs Reviewed: Yes - Additional Comments General: Mildly ill-appearing, mild pain distress Skin: warm, color reflects adequate perfusion, dry Head: normal Eyes: EOMI, [place] ENT: rhinorrhea, posterior pharynx erythema, L upper molar decay. Neck: supple, nontender Respiratory: Rhonchi bilaterally with breathing, breath sounds present Cardiovascular: RRR Abdomen: soft, nontender Bowel: present Musculoskeletal: normal, strength/ROM intact Neurological: normal, sensory/motor intact, A&O x3 Psychological: affect/mood appropriate Diagnostics - Radiology CXR Xray Interpretation: No Acute Changes Radiology Interpretation Completed By: Radiologist - NO ACTIVE CARDIOPULMONARY DISEASE. Re-Evaluation - Re-Evaluation First Eval Re-Evaluation Time: 13:16 Change: Unchanged - physician discussed CXR results with the pt. Flu Course/Dx - Course Course Of Treatment: Medications reviewed. DIARRHEA STARTED PRIOR TO AMOX. NO ABD PAIN; UNLIKELY C DIFF. F/U PMD; RETURN IF WORSE. - Differential Dx/Diagnosis Provider Diagnoses: BRONCHITIS, VOMITING Discharge - Discharge Plan Condition: Stable Disposition: HOME Prescriptions: Azithromyxin CALIN (NF) [Z-Calin (Zithromax) 250 mg tabs #6] 2 tab PO .TODAY, THEN 1 DAILY #6 tab Ondansetron ODT TAB* [Zofran 4 MG Odt TAB*] 4 mg PO Q6H PRN #15 tab.odt PRN Reason: Nausea Patient Education Materials: Acute Bronchitis (ED), Acute Nausea and Vomiting ( ED) Forms: *Work Release Referrals: Brock Grande MD [Primary Care Provider] - Additional Instructions: FOLLOW UP WITH YOUR DOCTOR THIS WEEK. GET RECHECKED FOR ANY WORSENING OF YOUR CONDITION OR QUESTIONS OR CONCERNS. The documentation as recorded by the Viet prakash Stephanie accurately reflects the service I personally performed and the decisions made by me, Jean Marie Sy MD.
== END 2017-09-19 12:27 | disposition home or self-care (01) ==
LOC: UCEAST 09:19
DX: J40 Bronchitis, not specified as acute or chronic (principal); R11.10 Vomiting, unspecified; Z88.1 Allergy status to other antibiotic agents
CPT/HCPCS: 71046; 99212; A9270-GY; G0463

== ENCOUNTER 2017-10-18 08:09 | Emergency (ER) | payer BC ==
[2017-10-18 08:23] VITALS: BP 109/71
--- NOTE | 2017-10-18 11:18 | UC ---
Buffy Encarnacion Nilda, scribed for Zayda Wallace DO on 10/18/17 at 0838 . Complaint Female HPI - HPI Summary HPI Summary: This patient is a 31 year old F presenting to [facility] with a chief complaint of constant abnormal vaginal itching and burning for the past few days. The patient rates the itching/burning pain 8/10 in severity. Symptoms aggravated and alleviated by nothing including Diflucan. She reports productive cough ( brown, for weeks), and intermittent chronic abd pain secondary to abdominal surgery in 2014. She denies abnormal vaginal discharge and odor. Patient states she was taking Z-dominick (completed) for bronchitis one month ago but symptoms have not resolved. Patient states she's been taking Augmentin intermittently (not as directed-a couple of days at a time) for dental pain/infection for one month in preparation for tooth extraction. She notes whenever she takes abx, she will often have vaginal symptoms. - History Of Current Complaint Chief Complaint: UCRash Stated Complaint: PERSONAL Hx Obtained From: Patient Hx Last Menstrual Period: 10/04/17 Cale Onset/Duration: Sudden Onset, Lasting Days, Still Present Timing: Constant Severity Currently: Severe Pain Intensity: 8 Pain Scale Used: 0-10 Numeric Character: Burning Aggravating Factor(s): Nothing Alleviating Factor(s): Nothing Associated Signs And Symptoms: Negative: Vaginal Discharge Related Hx: Ectopic - Allergies/Home Medications Allergies/Adverse Reactions: Allergies Allergy/AdvReac Type Severity Reaction Status Date / Time clindamycin Allergy Mild Hives Verified 10/18/17 08:23 PMH/Surg Hx/FS Hx/Imm Hx Previously Healthy: Yes Cardiovascular History: Other Other Cardiovascular History: negative HTN for 30s Respiratory History: Other Other Respiratory History: negative asthma for 30s Other History Of: Negative For: HIV, Hepatitis B, Hepatitis C, Anticoagulant Therapy - Surgical History Surgical History: Yes Surgery Procedure, Year, and Place: TONSILLECTOMY 2013, DENTAL EXTRACTION,TUBAL LIGATION, ECTOPIC SURGERY - Family History Known Family History: Negative: Cardiac Disease, Hypertension, Diabetes - Social History Occupation: Employed Full-time Lives: With Family Alcohol Use: Occasionally Alcohol Amount: 2 x month Substance Use Type: None Smoking Status (MU): Never Smoked Tobacco - Immunization History Most Recent Influenza Vaccination: refused Most Recent Tetanus Shot: UTD Review of Systems Respiratory: Cough - brown Gastrointestinal: Abdominal Pain - chronic intermittent Genitourinary: Vaginal/Penile Burning, Vaginal/Penile Itching, Other - negative abnormal vaginal discharge and odor All Other Systems Reviewed And Are Negative: Yes Physical Exam Triage Information Reviewed: Yes Vital Signs: Initial Vital Signs Temp 98.6 F 10/18/17 08:17 Pulse 71 10/18/17 08:17 Resp 20 10/18/17 08:17 BP 109/71 10/18/17 08:17 Pulse Ox 100 10/18/17 08:17 Vital Signs Reviewed: Yes - Additional Comments Appearance: Well-Appearing, No Pain Distress, Well-Nourished Eyes: conjunctiva clear, no discharge ENT: Hearing grossly normal, no muffled/hoarse voice. Neck: Normal, Supple Respiratory/Lung Sounds: Lungs clear, Normal breath sounds, No respiratory distress, No accessory muscle use Cardiovascular: RRR, No murmur Abdomen: Nontender, Soft, no guarding, not distended Bowel Sounds : Present PROGRAM PLANNER: Red, irritated vaginal mucosa with thin white discharge and no noticeable odor. Nurse Kerri present during PROGRAM PLANNER exam. Musculoskeletal: Normal Neurological: Alert, muscle tone normal Psychiatric:Normal, age appropriate behavior Skin: Normal, Warm, Dry, Normal color Complaint Female Dx - Course Course Of Treatment: This patient is a 31 year old F presenting to [facility] with a chief complaint of constant abnormal vaginal itching and burning for the past few days. The patient rates the burning pain 8/10 in severity. Symptoms aggravated and alleviated by nothing including Diflucan. She reports productive cough (brown, for weeks), and intermittent chronic abd pain secondary to abdominal surgery in 2014. She denies abnormal vaginal discharge and odor. Patient states she was taking Z-dominick (completed) for bronchitis one month ago but symptoms have not resolved. Patient states shes been taking Augmentin (a few days at a time, not as directed) for dental pain for one month in preparation for tooth extraction. She notes whenever she takes abx, she will often have vaginal symptoms. UA pending. Patient will be discharged with Dx of vaginitis and follow up from PCP. The patient is agreeable with this plan. Medications reviewed. Allergies reviewed. The patient was advised to take antibiotics as directed. - Differential Dx/Diagnosis Provider Diagnoses: vaginitis Discharge - Discharge Plan Condition: Stable Disposition: HOME Patient Education Materials: Vaginitis (ED) Referrals: Brock Grande MD [Primary Care Provider] - If Needed Additional Instructions: WE ARE SENDING SOME SPECIMENS TO THE LAB FOR TESTING. YOU WILL BE CALLED WITH ABNORMAL RESULTS. The documentation as recorded by the Buffy prakash Nilda accurately reflects the service I personally performed and the decisions made by , Zayda Wallace DO.
--- NOTE | 2017-10-20 12:57 | UC ---
- Progress Note Progress Note: + Jojo + Garnerella no treatment for either Rx for Diflucan, Flagyl Please call pt Pt give alcohol precaution with Saadia gilliam 10/20/2017
== END 2017-10-18 09:52 | disposition home or self-care (01) ==
LOC: UCEAST 08:09
DX: B37.3 Candidiasis of vulva and vagina (principal); R10.9 Unspecified abdominal pain; Z88.1 Allergy status to other antibiotic agents; R05 Cough; Z32.02 Encounter for pregnancy test, result negative
CPT/HCPCS: 81003; 81025; 87086; 87480; 87491; 87510; 87591; 87660; 99211; G0463

== ENCOUNTER 2017-11-09 09:16 | Emergency (ER) | payer BC ==
[2017-11-09 10:23] VITALS: BP 95/62
--- NOTE | 2017-11-09 10:23 | UC ---
Complaint Female HPI - HPI Summary HPI Summary: Pt presents with nausea, loose stools, and vomiting once per day for the last 2 days. Eating and drinking fine today without vomiting. No pain. Also complaining of right eye redness and drainage that started this morning - thinks she may have gotten this from her daughter who has eye redness/drainage. Denies fever, chills, cough, sore throat, headache, dizziness, SOB, chest pain. - History Of Current Complaint Chief Complaint: UCGI Stated Complaint: DIARRHEA/VOMITING Hx Obtained From: Patient Hx Last Menstrual Period: 10/04/17 Cale Onset/Duration: Gradual Onset Severity Initially: Moderate Severity Currently: Moderate Pain Intensity: 6 Pain Scale Used: 0-10 Numeric - Allergies/Home Medications Allergies/Adverse Reactions: Allergies Allergy/AdvReac Type Severity Reaction Status Date / Time clindamycin Allergy Mild Hives Verified 11/09/17 10:23 PMH/Surg Hx/FS Hx/Imm Hx Previously Healthy: Yes Other History Of: Negative For: HIV, Hepatitis B, Hepatitis C, Anticoagulant Therapy - Surgical History Surgical History: Yes Surgery Procedure, Year, and Place: TONSILLECTOMY 2013, DENTAL EXTRACTION,TUBAL LIGATION, ECTOPIC SURGERY - Family History Known Family History: Negative: Cardiac Disease, Hypertension, Diabetes - Social History Occupation: Employed Full-time Lives: With Family Alcohol Use: Occasionally Alcohol Amount: 2 x month Substance Use Type: None Smoking Status (MU): Never Smoked Tobacco - Immunization History Most Recent Influenza Vaccination: refused Most Recent Tetanus Shot: UTD Review of Systems Constitutional: Negative Skin: Negative Eyes: Drainage - Right eye, Eye Redness - Right eye ENT: Negative Respiratory: Negative Cardiovascular: Negative Gastrointestinal: Vomiting, Diarrhea, Nausea Musculoskeletal: Negative Neurological: Negative Psychological: Negative All Other Systems Reviewed And Are Negative: Yes Physical Exam - Summary Physical Exam Summary: GENERAL: NAD. WDWN. No pain distress. SKIN: No rashes, sores, ulcers, masses, lesions. HEENT: Head: AT/NC Eyes: EOM intact. Right eye: Conjunctiva with mild erythema and purulent yellow crust. PERRLA Ears: Hearing grossly normal. TMs intact, no bulging, erythema, or edema. Nose: Nasal mucosa pink and moist. NTTP maxillary and frontal sinus. Throat: Posterior oropharynx without exudates, erythema, or tonsillar enlargement. Uvula midline. NECK: Supple. Nontender. No lymphadenopathy. CHEST: CTAB. No r/r/w. No accessory muscle use. Breathing comfortably and in no distress. CV: RRR. Without m/r/g. Pulses intact. Brisk cap refill. ABDOMEN: Soft. NTTP. No distention or guarding. No organomegaly. No CVA tenderness. Bowel sounds present x4. NEURO: Alert. CN II-XII grossly intact. PSYCH: Age appropriate behavior. Triage Information Reviewed: Yes Vital Signs: Initial Vital Signs Temp 98.0 F 11/09/17 10:19 Pulse 72 11/09/17 10:19 Resp 18 11/09/17 10:19 BP 95/62 11/09/17 10:19 Pulse Ox 98 11/09/17 10:19 Complaint Female Dx - Course Course Of Treatment: Suspect viral gastroenteritis - Zofran. BRAT diet. Fluids. Right eye conjunctivitis. - Differential Dx/Diagnosis Provider Diagnoses: Viral gastroenteritis. Right eye conjunctivitis Discharge - Discharge Plan Condition: Stable Disposition: HOME Prescriptions: Ondansetron ODT TAB* [Zofran 4 MG Odt TAB*] 4 mg PO Q6H PRN #15 tab.odt PRN Reason: Nausea Polymyx/Trimethoprim OPTH* [Polytrim OPHTH*] 1 drop BOTH EYES QID #1 btl Patient Education Materials: Gastroenteritis (DC) Forms: *Work Release Referrals: Brock Grande MD [Primary Care Provider] - Additional Instructions: If you develop a fever, shortness of breath, chest pain, new or worsening symptoms - please call your PCP or go to the ED.
== END 2017-11-09 10:52 | disposition home or self-care (01) ==
LOC: UCEAST 09:16
DX: A08.4 Viral intestinal infection, unspecified (principal); H10.31 Unspecified acute conjunctivitis, right eye; Z88.1 Allergy status to other antibiotic agents
CPT/HCPCS: 99211; G0463

== ENCOUNTER 2017-11-16 07:32 | Emergency (ER) | payer BC ==
[2017-11-16 07:40] VITALS: BP 107/64
--- NOTE | 2017-11-16 08:31 | RAD ---
INDICATION: Cough and fever. COMPARISON: Comparison is made with a prior study from September 19, 2017. TECHNIQUE: Dual-energy PA and lateral views of the chest were obtained. FINDINGS: The heart is within normal limits in size. Mediastinal and hilar contours appear within normal limits. The lungs are clear. No pleural effusion is present. IMPRESSION: NO EVIDENCE FOR ACTIVE CARDIOPULMONARY DISEASE.
--- NOTE | 2017-12-10 14:13 | UC ---
Tulio Encarnacion Jennifer, scribed for Rachel Rider MD on 11/16/17 at 0759 . General HPI - HPI Summary HPI Summary: The patient is a 32 year old female who complains of chest congestion, ear pain , and throat pain for the past week. She additionally complains that she has been coughing a lot and is up all night. She describes the sputum is sometimes clear or sometimes brown. She adds that her nasal discharge is sometimes clear, yellow, or green. The patient also complains of abdominal pain, tight chest pressure, and green diarrhea every time she eats that began yesterday. She explains that she has been taking Sudafed, Dayquil, and Tylenol sinus and cold. - History of Current Complaint Chief Complaint: UCGeneralIllness Stated Complaint: chest congestion Time Seen by Provider: 11/16/17 07:37 Hx Obtained From: Patient Hx Last Menstrual Period: 10/19/17 Onset/Duration: Sudden Onset, Lasting Weeks - 1 week, Still Present Timing: Constant Onset Severity: Moderate Current Severity: Moderate Pain Intensity: 8 Associated Signs & Symptoms: Positive: Other - Chest congestion, ear pain, throat pain, chest pressure, productive cough, nasal discharge, abdominal pain, diarrhea - Allergy/Home Medications Allergies/Adverse Reactions: Allergies Allergy/AdvReac Type Severity Reaction Status Date / Time clindamycin Allergy Mild Hives Verified 11/21/17 14:19 PMH/Surg Hx/FS Hx/Imm Hx Previously Healthy: Yes - NEG: Asthma, HTN Other History Of: Negative For: HIV, Hepatitis B, Hepatitis C, Anticoagulant Therapy - Surgical History Surgical History: Yes Surgery Procedure, Year, and Place: TONSILLECTOMY 2013, DENTAL EXTRACTION,TUBAL LIGATION, ECTOPIC SURGERY - Family History Known Family History: Negative: Cardiac Disease, Hypertension, Diabetes - Social History Alcohol Use: Occasionally Alcohol Amount: 2 x month Substance Use Type: None Smoking Status (MU): Never Smoked Tobacco - Immunization History Most Recent Influenza Vaccination: refused Most Recent Tetanus Shot: UTD Review of Systems Constitutional: Negative Skin: Negative Eyes: Negative ENT: Sore Throat, Ear Ache, Nasal Discharge, Other - Chest congestion Respiratory: Cough Cardiovascular: Other - Chest pressure Gastrointestinal: Abdominal Pain, Diarrhea Genitourinary: Negative Motor: Negative Neurovascular: Negative Musculoskeletal: Negative Neurological: Negative Psychological: Negative All Other Systems Reviewed And Are Negative: Yes Physical Exam - Summary Physical Exam Summary: Appearance: Well-Nourished Eye Exam: Normal ENT Exam: Normal Respiratory Exam: Normal, no dyspnea, no tachypnea, normal respiratory rate Cardiovascular Exam: Normal Cardiovascular: Heart rate regular, good general skin color, good capillary refill Abdominal Exam: Normal Abdomen Description: Nontender, No Organomegaly, Soft Bowel Sounds: Present Musculoskeletal Exam: Normal Musculoskeletal: Strength Intact Neurological Exam: Normal: nonfocal, grossly intact Psychological Exam: Normal: conversing easily and appropriately Skin Exam: Normal: no visible or reported rash Triage Information Reviewed: Yes Appearance: Well-Nourished - looks tired. NAD. Vital Signs: Initial Vital Signs Temp 97.7 F 11/16/17 07:35 Pulse 57 11/16/17 07:35 Resp 18 11/16/17 07:35 BP 107/64 11/16/17 07:35 Pulse Ox 98 11/16/17 07:35 Vital Signs Reviewed: Yes Eye Exam: Normal ENT Exam: Other ENT: Positive: Pharyngeal erythema - mild post redness, c/w cough, Nasal congestion, TM dull Dental Exam: Normal Neck exam: Normal Neck: Positive: Supple, Nontender Respiratory Exam: Other - + rhonchorus cough. no stridor. BS equal Cardiovascular Exam: Normal Cardiovascular: Positive: RRR, No Murmur, Pulses Normal, Brisk Capillary Refill Abdominal Exam: Normal Abdomen Description: Positive: Nontender Musculoskeletal Exam: Normal Neurological Exam: Normal Psychological Exam: Normal Skin Exam: Normal Diagnostics - Radiology CXR Xray Interpretation: No Acute Changes - NO EVIDENCE FOR ACTIVE CARDIOPULMONARY DISEASE. Dr. Rider has reviewed this report. Radiology Interpretation Completed By: Radiologist Course/Dx - Course Course Of Treatment: Reviewed s/sx with pt. Reviewed COA / tx plan. Questions as posed answered to the best of my ability. - Differential Dx - Multi-Symptom Provider Diagnoses: Sinusitis. Bronchitis. Gastroenteritis Discharge - Sign-Out/Discharge Documenting (check all that apply): Discharge - Discharge Plan Condition: Stable Disposition: HOME Patient Education Materials: Sinusitis (ED), Gastroenteritis (ED), Acute Bronchitis (ED) Referrals: Brock Grande MD [Primary Care Provider] - Additional Instructions: Please follow up with your primary care provider per routine. Seek medical attention for worse or new problems in the meantime. Please bring stool sample to the lab at your convenience. - Billing Disposition and Condition Condition: STABLE Disposition: HOME The documentation as recorded by the Tulio prakash Jennifer accurately reflects the service I personally performed and the decisions made by me, Rachel Rider MD.
== END 2017-11-16 08:56 | disposition home or self-care (01) ==
LOC: UCEAST 07:32
DX: J32.9 Chronic sinusitis, unspecified (principal); J40 Bronchitis, not specified as acute or chronic; K52.9 Noninfective gastroenteritis and colitis, unspecified; J45.909 Unspecified asthma, uncomplicated; I10 Essential (primary) hypertension; Z88.1 Allergy status to other antibiotic agents
CPT/HCPCS: 71046; 87651; 99212; G0463

== ENCOUNTER 2017-11-21 14:00 | Emergency (ER) | payer BC ==
[2017-11-21 14:19] VITALS: BP 108/83
--- NOTE | 2017-11-21 15:45 | UC ---
Vivek Encarnacion Natalie, scribed for Jean Marie Sy MD on 11/21/17 at 1544 . Throat Pain/Nasal Iker HPI - HPI Summary HPI Summary: The pt is a 32 y/o F presenting to [facility] c/o sinus congestion for a few days. She was diagnosed with bronchitis last week, and has since become congested. 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 Moore. Pt also c/o of a sore throat, right ear ache, and head pressure that becomes worse when she bends over. The pt's daughter has had similar symptoms. - History of Current Complaint Chief Complaint: UCRespiratory Stated Complaint: COUGH,CONGESTED Time Seen by Provider: 11/21/17 14:35 Hx Obtained From: Patient Hx Last Menstrual Period: 10/19/17 Onset/Duration: Lasting Days Severity: Moderate Pain Intensity: 6 Pain Scale Used: 0-10 Numeric Cough: None Associated Signs & Symptoms: Positive: Sinus Discomfort - Allergies/Home Medications Allergies/Adverse Reactions: Allergies Allergy/AdvReac Type Severity Reaction Status Date / Time clindamycin Allergy Mild Hives Verified 11/21/17 14:19 PMH/Surg Hx/FS Hx/Imm Hx Respiratory History: Bronchitis Other History Of: Negative For: HIV, Hepatitis B, Hepatitis C, Anticoagulant Therapy - Surgical History Surgical History: Yes Surgery Procedure, Year, and Place: TONSILLECTOMY 2012, DENTAL EXTRACTION,TUBAL LIGATION, ECTOPIC SURGERY - Family History Known Family History: Negative: Cardiac Disease, Hypertension, Diabetes - Social History Alcohol Use: Occasionally Alcohol Amount: 2 x month Substance Use Type: None Smoking Status (MU): Never Smoked Tobacco - Immunization History Most Recent Influenza Vaccination: refused Most Recent Tetanus Shot: UTD Review of Systems ENT: Sore Throat, Ear Ache, Sinus Congestion Respiratory: Cough All Other Systems Reviewed And Are Negative: Yes Physical Exam Triage Information Reviewed: Yes Appearance: Well-Appearing, No Pain Distress Vital Signs: Initial Vital Signs Temp 97.9 F 11/21/17 14:14 Pulse 82 11/21/17 14:14 Resp 18 11/21/17 14:14 BP 108/83 11/21/17 14:14 Pulse Ox 99 11/21/17 14:14 Vital Signs Reviewed: Yes Eyes: Positive: Other: - EOMI, [place] ENT: Positive: Other - right sided anterior cervical lymphadenopathy, serous otitis media, positive rhinorrhea, Neck: Positive: Supple, Nontender Respiratory: Positive: Other: - CTA, breath sounds present Cardiovascular: Positive: RRR Abdomen Description: Positive: Nontender, Soft Bowel Sounds: Positive: Present Musculoskeletal Exam: Normal Musculoskeletal: Positive: Strength Intact, ROM Intact Neurological: Positive: Other: - normal, sensory/motor intact, A&O x3 Psychological: Positive: Other: - affect/mood appropriate Skin: Positive: Other - warm, color reflects adequate perfusion, dry Throat Pain/Nasal Course/Dx - Course Course Of Treatment: Medications reviewed. Allergies noted. - Differential Dx/Diagnosis Provider Diagnoses: sinusitis Discharge - Sign-Out/Discharge Documenting (check all that apply): Discharge - Discharge Plan Condition: Stable Disposition: HOME Discharge Disposition Comment: The pt will be discharged home. Prescriptions: Amoxicillin/Clavulanate TAB* [Augmentin TAB 875*] 875 mg PO BID #20 tab Patient Education Materials: Sinusitis (ED) Forms: *Work Release Referrals: Brock Grande MD [Primary Care Provider] - Additional Instructions: FOLLOW UP WITH YOUR DOCTOR. GET RECHECKED FOR ANY WORSENING OF YOUR CONDITION OR QUESTIONS OR CONCERNS. - Billing Disposition and Condition Condition: STABLE Disposition: HOME The documentation as recorded by the Vivek prakash Natalie accurately reflects the service I personally performed and the decisions made by me, Jean Marie Sy MD.
== END 2017-11-21 15:53 | disposition home or self-care (01) ==
LOC: UCEAST 14:00
DX: J32.9 Chronic sinusitis, unspecified (principal); Z88.1 Allergy status to other antibiotic agents
CPT/HCPCS: 99212; G0463

== ENCOUNTER 2017-12-22 17:50 | Emergency (ER) | payer BC ==
[2017-12-22] MEDS ORDERED: Ketorolac INJ* 30 MG/ML 1 ML VIAL IV PUSH ONE (21:08)
[2017-12-22] MEDS ORDERED: Ondansetron INJ* 2 MG/ML VIAL IV ONE (21:08)
[2017-12-22] MEDS ORDERED: NS 0.9% 1000 ML* 1,000 ML IV ONE (21:08)
[2017-12-22 21:47] LABS: ABS Basophils 0 10^3/ul (0-0.2); ABS Eosinophils 0.1 10^3/ul (0-0.6); ABS Lymphocytes 1.5 10^3/ul (1.0-4.8); ABS Monocytes 1.1 10^3/ul (0-0.8); ABS Neutrophils 4.8 10^3/ul (1.5-7.7); ABS Nucleated RBC 0 10^3/ul; Eosinophil % 1.3 % (0-6); Hematocrit 42 % (35-47); Hemoglobin 14.7 g/dl (12.0-16.0); Lymphocyte % 20.4 % (25-47); Mean Corpuscular HGB Conc 35 g/dl (31-36); Mean Corpuscular Hemoglobin 33 pg (27-31); Mean Corpuscular Volume 95 fL (80-97); Mean Platelet Volume 10.2 um3 (7.4-10.4); Nucleated Red Blood Cells % 0; Platelet Count 136 10^3/ul (150-450); Red Blood Count 4.44 10^6/ul (4.0-5.4); Red Cell Distribution Width 13 % (10.5-15); White Blood Count 7.5 10^3/ul (3.5-10.8)
[2017-12-22 22:06] LABS: EGFR Non-African American 78.1 (>60)
[2017-12-22] MEDS ORDERED: Ketorolac INJ* 30 MG/ML 1 ML VIAL ONE (22:56)
[2017-12-22] MEDS ORDERED: Ondansetron INJ* 2 MG/ML VIAL ONE (22:56)
[2017-12-23 00:03] VITALS: BP 113/65
--- NOTE | 2017-12-23 00:58 | ED ---
Patrick Encarnacion Gabriel, scribed for Kodi French MD on 12/22/17 at 2311 . Abdominal Pain/Female - HPI Summary HPI Summary: This patient is a 32 year old F presenting to [facility] with a chief complaint of a general illness that began a week ago. The patient rates the pain 10/10 in severity. Symptoms alleviated by nothing, pt took zofran and motrin with no relief. Patient reports GREGORIO, myalgia, rectal pain, ABD pain, n/v/d, dizziness, light headedness, ear pain, and vaginal pain. LNMP just ended. - History of Current Complaint Chief Complaint: EDGeneral Stated Complaint: GENERAL ILLNESS Time Seen by Provider: 12/22/17 22:54 Hx Obtained From: Patient Hx Last Menstrual Period: 10/19/17 Onset/Duration: Lasting Weeks - 1, Still Present Timing: Constant Severity Initially: Severe Severity Currently: Severe Pain Intensity: 10 Pain Scale Used: 0-10 Numeric Location: Diffuse, Discrete At: LLQ Radiates: No Alleviating Factor(s): Nothing Associated Signs and Symptoms: Positive: Nausea, Vomiting, Diarrhea, Other: - rectal pain, vaginal pain Allergies/Adverse Reactions: Allergies Allergy/AdvReac Type Severity Reaction Status Date / Time clindamycin Allergy Mild Hives Verified 11/21/17 14:19 Home Medications: Home Medications Ondansetron ODT TAB* [Zofran 4 MG Odt TAB*] 4 mg PO Q6H PRN 12/22/17 [History Confirmed 12/22/17] PMH/Surg Hx/FS Hx/Imm Hx Endocrine/Hematology History: Denies: Hx Anticoagulant Therapy, Hx Diabetes, Hx Thyroid Disease Cardiovascular History: Denies: Hx Congestive Heart Failure, Hx Deep Vein Thrombosis, Hx Hypertension , Hx Myocardial Infarction, Hx Pacemaker/ICD Respiratory History: Denies: Hx Asthma, Hx Chronic Obstructive Pulmonary Disease (COPD), Hx Lung Cancer, Hx Pneumonia, Hx Pulmonary Embolism GI History: Denies: Hx Gall Bladder Disease, Hx Gastrointestinal Bleed, Hx Ulcer, Hx Urosepsis History: Denies: Hx Kidney Stones, Hx Renal Disease Sensory History: Denies: Hx Hearing Aid Neurological History: Denies: Hx Dementia, Hx Migraine, Hx Seizures, Hx Transient Ischemic Attacks (TIA) Psychiatric History: Denies: Hx Anxiety, Hx Depression, Hx Panic Disorder, Hx Schizophrenia, Hx Bipolar Disorder - Surgical History Surgery Procedure, Year, and Place: TONSILLECTOMY 2013, DENTAL EXTRACTION,TUBAL LIGATION, ECTOPIC SURGERY Infectious Disease History: No Infectious Disease History: Denies: Hx Clostridium Difficile, Hx Hepatitis, Hx Human Immunodeficiency Virus (HIV), Hx of Known/Suspected MRSA, Hx Shingles, Hx Tuberculosis, Hx Known/ Suspected VRE, Hx Known/Suspected VRSA, History Other Infectious Disease, Traveled Outside the [place] in Last 30 Days - Family History Known Family History: Negative: Cardiac Disease, Hypertension, Diabetes - Social History Lives: With Family Alcohol Use: Occasionally Alcohol Amount: 2 x month Hx Substance Use: No Substance Use Type: Reports: None Hx Tobacco Use: No Smoking Status (MU): Never Smoked Tobacco Review of Systems Positive: Ear Ache Positive: Abdominal Pain, Vomiting, Diarrhea, Nausea, Other - rectal pain Positive: other - vaginal pain Positive: Myalgia Neurological: Other - dizziness, light headedness Positive: Headache All Other Systems Reviewed And Are Negative: Yes Physical Exam - Summary Physical Exam Summary: Appearance: Well appearing, no pain distress Skin: warm, dry, reflects adequate perfusion Head/face: normal Eyes: EOMI, [place] ENT: normal Neck: supple, non-tender Respiratory: CTA, breath sounds present Cardiovascular: RRR, pulses symmetrical Abdomen: soft with mild LLQ pain Bowel Sounds: present Musculoskeletal: normal, strength/ROM intact Neuro: normal, sensory motor intact, A&Ox3 Triage Information Reviewed: Yes Vital Signs On Initial Exam: Initial Vitals Temp Pulse Resp BP Pulse Ox 99.0 F 88 16 121/75 100 12/22/17 18:06 12/22/17 18:06 12/22/17 18:06 12/22/17 18:06 12/22/17 18:06 Vital Signs Reviewed: Yes Diagnostics - Vital Signs Vital Signs Temp Pulse Resp BP Pulse Ox 12/22/17 22:06 100.3 F 108 18 132/74 97 12/22/17 20:06 100.0 F 103 18 138/75 99 12/22/17 18:06 99.0 F 88 16 121/75 100 - Laboratory Lab Results: Lab Results 12/22/17 12/22/17 Range/Units 21:28 21:28 WBC 7.5 (3.5-10.8) 10^3/ul RBC 4.44 (4.0-5.4) 10^6/ul Hgb 14.7 (12.0-16.0) g/dl Hct 42 (35-47) % MCV 95 (80-97) fL MCH 33 H (27-31) pg MCHC 35 (31-36) g/dl RDW 13 (10.5-15) % Plt Count 136 L (150-450) 10^3/ul MPV 10.2 (7.4-10.4) um3 Neut % (Auto) 62.9 (38-83) % Lymph % (Auto) 20.4 L (25-47) % [place] % (Auto) 15.0 H (0-7) % Eos % (Auto) 1.3 (0-6) % Baso % (Auto) 0.4 (0-2) % Absolute Neuts (auto) 4.8 (1.5-7.7) 10^3/ul Absolute Lymphs (auto) 1.5 (1.0-4.8) 10^3/ul Absolute Monos (auto) 1.1 H (0-0.8) 10^3/ul Absolute Eos (auto) 0.1 (0-0.6) 10^3/ul Absolute Basos (auto) 0 (0-0.2) 10^3/ul Absolute Nucleated RBC 0 10^3/ul Nucleated RBC % 0 Sodium 138 L (139-145) mmol/L Potassium 4.2 (3.5-5.0) mmol/L Chloride 102 (101-111) mmol/L Carbon Dioxide 28 (22-32) mmol/L Anion Gap 8 (2-11) mmol/L BUN 10 (6-24) mg/dL Creatinine 0.84 (0.51-0.95) mg/dL Est GFR ( Amer) 100.4 (>60) Est GFR (Non-Af Amer) 78.1 (>60) BUN/Creatinine Ratio 11.9 (8-20) Glucose 103 H (70-100) mg/dL Calcium 9.3 (8.6-10.3) mg/dL Total Bilirubin 0.60 (0.2-1.0) mg/dL AST 35 (13-39) U/L ALT 84 H (7-52) U/L Alkaline Phosphatase 47 (34-104) U/L Total Protein 7.4 (6.4-8.9) g/dL Albumin 4.1 (3.2-5.2) g/dL Globulin 3.3 (2-4) g/dL Albumin/Globulin Ratio 1.2 (1-3) Lipase 15 (11.0-82.0) U/L Result Diagrams: 12/22/17 21:28 12/22/17 21:28 Lab Statement: Any lab studies that have been ordered have been reviewed, and results considered in the medical decision making process. - Radiology ABD Xray Radiology Interpretation Completed By: ED Physician - No acute disease Abdominal Pain Fem Course/Dx - Course Course Of Treatment: Patient is a very frequent visitor of the ER and urgent cares with multiple visits since the beginning of the year. Today she has a myriad of complaints mostly surrounding around GI issues. Laboratories are benign and her KUB shows no constipation or air fluid levels. She is treated symptomatically here with Zofran, IV fluids and Toradol. The room smells heavily of marijuana however the patient denies using the drug. This could cause hyperemesis. I will continue to treat her symptomatically and have her follow closely with her primary care physician. [facility] and [facility] was [facility] on the patient. - Diagnoses Differential Diagnosis: Positive: Bowel Obstruction, Constipation, Irritable Bowel Syndrome, Ovarian Cyst, Pancreatitis, Pelvic Inflammatory Disease Provider Diagnoses: Gastroenteritis Discharge - Sign-Out/Discharge Documenting (check all that apply): Discharge/Admit/Transfer - Discharge Plan Condition: Good Disposition: HOME Prescriptions: Hyoscyamine Sulfate 0.125 mg PO Q6H PRN #20 tablet PRN Reason: abdominal cramping Ondansetron TAB* [Zofran 4 MG Tab*] 4 mg PO Q6H PRN #10 tab PRN Reason: Nausea Patient Education Materials: Gastroenteritis (ED) Referrals: Brock Grande MD [Primary Care Provider] - Additional Instructions: [place] diet, drink plenty of fluids. Return if worse, fevers, persistent vomiting, new symptoms or other concerns. Follow up with her primary care doctor tomorrow. - Billing Disposition and Condition Condition: GOOD Disposition: HOME The documentation as recorded by the Patrick prakash Gabriel accurately reflects the service I personally performed and the decisions made by , Kodi French MD.
--- NOTE | 2017-12-23 08:13 | RAD ---
INDICATION: Diffuse abdominal pain with nausea vomiting and diarrhea. COMPARISON: None TECHNIQUE: 2 views the abdomen were obtained. FINDINGS: There are no acute bony or soft tissue abnormalities. The bowel gas pattern is normal. There is a moderate amount of stool overlying the renal shadows. There are no obvious coarse calcifications overlying the expected location of the bilateral collecting systems or ureters. IMPRESSION:Normal KUB.
== END 2017-12-23 00:12 | disposition home or self-care (01) ==
LOC: ED 17:50
DX: K52.9 Noninfective gastroenteritis and colitis, unspecified (principal); Z88.3 Allergy status to other anti-infective agents
CPT/HCPCS: 36415; 74018; 80053; 83690; 85025; 96374; 96375; 96376; 99283; J1885; J2405

== ENCOUNTER 2017-12-24 13:44 | Emergency (ER) | payer BC ==
[2017-12-24] MEDS ORDERED: diPHENhydraMINE IV* 25 MG in NS 0.9% 50 ML* 50 ML IVPB ONE (16:56)
[2017-12-24] MEDS ORDERED: Metoclopramide IV* 5 MG/ML 2 ML VIAL IV ONE (16:56)
[2017-12-24] MEDS ORDERED: NS 0.9% 1000 ML* 1,000 ML IV ONE (16:57)
[2017-12-24 17:20] LABS: ABS Basophils 0 10^3/ul (0-0.2); ABS Eosinophils 0.2 10^3/ul (0-0.6); ABS Lymphocytes 2.1 10^3/ul (1.0-4.8); ABS Monocytes 0.8 10^3/ul (0-0.8); ABS Neutrophils 3.8 10^3/ul (1.5-7.7); ABS Nucleated RBC 0 10^3/ul; Eosinophil % 2.8 % (0-6); Hematocrit 41 % (35-47); Hemoglobin 13.9 g/dl (12.0-16.0); Lymphocyte % 30.2 % (25-47); Mean Corpuscular HGB Conc 34 g/dl (31-36); Mean Corpuscular Hemoglobin 32 pg (27-31); Mean Corpuscular Volume 95 fL (80-97); Mean Platelet Volume 9.9 um3 (7.4-10.4); Nucleated Red Blood Cells % 0; Platelet Count 152 10^3/ul (150-450); Red Cell Distribution Width 13 % (10.5-15)
--- NOTE | 2017-12-24 17:23 | RAD ---
Indication: Headaches. CT of the brain was performed without IV contrast. There are no prior study available for comparison. Ventricular structures are midline. No midline shift is noted. The extra-axial spaces are unremarkable. There is no evidence of intracranial mass or hemorrhage. No other high or low density lesions are identified. Mastoid air cells and paranasal sinuses demonstrates opacification of the right mastoid air cells consistent with right-sided mastoid sinusitis. Mucosal thickening of the ethmoid air cells is also noted. IMPRESSION: No intracranial mass or hemorrhage is noted. Fluid is noted in the right mastoid air cells consistent with mastoid sinusitis. Mucosal thickening of the middle and anterior ethmoid air cells consistent with chronic sinusitis of the ethmoid.
[2017-12-24 17:36] LABS: EGFR Non-African American 93.3 (>60)
[2017-12-24] MEDS ORDERED: Ketorolac INJ* 30 MG/ML 1 ML VIAL IV PUSH ONE (17:45)
[2017-12-24] MEDS ORDERED: cefTRIAXone(*) 2 GM in NS 0.9% 100 ML* 100 ML IVPB ONE (18:44)
[2017-12-24] MEDS ORDERED: Meclizine TAB* 12.5 MG PO ONE (18:52)
[2017-12-24 20:11] VITALS: BP 122/79
--- NOTE | 2017-12-25 07:29 | ED ---
Michele Encarnacion Julia, scribed for Balwinder Landry MD on 12/24/17 at 1650 . Dizziness - HPI Summary HPI Summary: This patient is a 32 year old F presenting to [facility] with a chief complaint of dizziness and pressure like headache for the past week. Pt was recently seen in ED for similar symptoms, but no imaging was performed. Patient reports vomiting , sweats, chills, body aches, and dark urine, and decreased PO intake. The patient rates the pain 10/10 in severity. Symptoms aggravated by bending over and bring light. Pt was sent here by her PCP. Symptoms are unchanged by 500mg of Tylenol. - History Of Current Complaint Chief Complaint: EDDizziness Stated Complaint: DIZZINESS Time Seen by Provider: 12/24/17 16:41 Hx Obtained From: Patient Onset/Duration: Still Present Timing: Constant Severity Initially: Mild Severity Currently: Moderate Character: Unable To Describe - pressure Aggravating Factor(s): Position Change, Other - lights Associated Signs And Symptoms: Positive: Vomiting, Decreased Oral Intake, Fever , Chills - Allergies/Home Medications Allergies/Adverse Reactions: Allergies Allergy/AdvReac Type Severity Reaction Status Date / Time clindamycin Allergy Mild Hives Verified 11/21/17 14:19 PMH/Surg Hx/FS Hx/Imm Hx Endocrine/Hematology History: Denies: Hx Anticoagulant Therapy, Hx Diabetes, Hx Thyroid Disease Cardiovascular History: Denies: Hx Congestive Heart Failure, Hx Deep Vein Thrombosis, Hx Hypertension , Hx Myocardial Infarction, Hx Pacemaker/ICD Respiratory History: Denies: Hx Asthma, Hx Chronic Obstructive Pulmonary Disease (COPD), Hx Lung Cancer, Hx Pneumonia, Hx Pulmonary Embolism GI History: Denies: Hx Gall Bladder Disease, Hx Gastrointestinal Bleed, Hx Ulcer, Hx Urosepsis History: Denies: Hx Kidney Stones, Hx Renal Disease Sensory History: Denies: Hx Hearing Aid Neurological History: Denies: Hx Dementia, Hx Migraine, Hx Seizures, Hx Transient Ischemic Attacks (TIA) Psychiatric History: Denies: Hx Anxiety, Hx Depression, Hx Panic Disorder, Hx Schizophrenia, Hx Bipolar Disorder - Surgical History Surgery Procedure, Year, and Place: TONSILLECTOMY 2013, DENTAL EXTRACTION,TUBAL LIGATION, ECTOPIC SURGERY Infectious Disease History: No Infectious Disease History: Denies: Hx Clostridium Difficile, Hx Hepatitis, Hx Human Immunodeficiency Virus (HIV), Hx of Known/Suspected MRSA, Hx Shingles, Hx Tuberculosis, Hx Known/ Suspected VRE, Hx Known/Suspected VRSA, History Other Infectious Disease, Traveled Outside the [place] in Last 30 Days - Family History Known Family History: Negative: Cardiac Disease, Hypertension, Diabetes - Social History Lives: With Family Alcohol Use: Occasionally Alcohol Amount: 2 x month Hx Substance Use: No Substance Use Type: Reports: None Hx Tobacco Use: No Smoking Status (MU): Never Smoked Tobacco Review of Systems Positive: Chills, Skin Diaphoresis Positive: Myalgia Positive: Headache All Other Systems Reviewed And Are Negative: Yes Physical Exam - Summary Physical Exam Summary: GENERAL: Patient is a well developed and nourished F who is lying comfortable in the stretcher. Patient is not in any acute respiratory distress. HEAD AND FACE: Normocephalic EYES: PERRLA, EOMI x 2. EARS: Hearing grossly intact. TM clear bilaterally MOUTH: Oropharynx within normal limits. NECK: Supple, trachea is midline, no adenopathy, no JVD, no carotid bruit. CHEST: Symmetric, no tenderness at palpation LUNGS: Clear to auscultation bilaterally. No wheezing or crackles. CVS: Regular rate and rhythm, S1 and S2 present, no murmurs or gallops appreciated. ABDOMEN: Soft, non-tender. Bowel sounds are normal. No abdominal abnormal pulsations. EXTREMITIES: Full ROM in all major joints, no edema, no cyanosis or clubbing. NEURO: Alert and oriented x 3. No acute neurological deficits. Speech is normal and follows commands. SKIN: Dry and warm Triage Information Reviewed: Yes Vital Signs On Initial Exam: Initial Vitals Temp Pulse Resp BP Pulse Ox 97.9 F 66 14 117/56 100 12/24/17 13:48 12/24/17 13:48 12/24/17 13:48 12/24/17 13:48 12/24/17 13:48 Vital Signs Reviewed: Yes Diagnostics - Vital Signs Vital Signs Temp Pulse Resp BP Pulse Ox 12/24/17 15:43 97.8 F 65 14 100/74 100 12/24/17 13:48 97.9 F 66 14 117/56 100 - Laboratory Lab Results: Lab Results 12/24/17 12/24/17 Range/Units 15:37 15:39 Influenza A (Rapid) Negative (Negative) Influenza B (Rapid) Negative (Negative) Group A Strep Rapid Negative (Negative) Result Diagrams: 12/24/17 17:08 12/24/17 17:08 Lab Statement: Any lab studies that have been ordered have been reviewed, and results considered in the medical decision making process. - CT Brain CT CT Interpretation Completed By: Radiologist - No intracranial mass or hemorrhage is noted. Fluid is noted in the right mastoid air cells consistent with mastoid sinusitis. Mucosal thickening of the middle and anterior ethmoid air cells consistent with chronic sinusitis of the ethmoid. ED Physician has reviewed this report. Dizzy Course/Dx - Course Course Of Treatment: 32 y/o F presents to ED for second time with worseing headache described as a pressure sensation. Brain CT shows fluid in R mastoidd ear consistent with mastoid sinusitis. Labs are unremarkable. Consulted Dr. Richard who said he will see pt in office he thinks the CT is an incidental finding as pt does not have otitis media. Pt is ordered for IV fluid, Benadryl, Reglan, Meclizine, and Toradol. Pt will be signed out to Dr. Garza pending re- evaluation after medications. - Diagnoses Provider Diagnoses: Acute headache, Mastoiditis - Provider Notifications Discussed Care Of Patient With: Elie Richard - ENT Time Discussed With Above Provider: 18:50 Instructed by Provider To: Other - will see in office Discharge - Sign-Out/Discharge Documenting (check all that apply): Sign-Out Patient Signing out patient TO: Yi Garza Receiving patient FROM: Balwinder Landry - re-revaluation - Discharge Plan Disposition: HOME Prescriptions: Amoxicillin/Clavulanate TAB* [Augmentin TAB 875*] 875 mg PO BID #20 tab HYDROcodone/ACETAMIN 5-325 MG* [[place] 5-325 TAB*] 1 tab PO Q4H PRN #6 tab MDD 6 PRN Reason: Severe Pain Meclizine TAB* [Antivert 12.5 TAB*] 25 mg PO TID #20 tab Patient Education Materials: Acute Headache (ED), Mastoiditis (ED) Referrals: Elie Richard MD [Medical Doctor] - As Soon As Possible (Follow up with Dr. Richard in his office as soon as possible.) Additional Instructions: Dr. Landry spoke with Dr. Richard, the environmental research scientist. He will see you in follow up. He thinks the fluid in the mastoid is possibly an incidental finding, but advises that we treat it, and have you follow up. You were given your first dose of antibiotics via IV, ceftriaxone 2gms. You also had meclizine, benadryl, toradol and reglan and IV fluids for your symptoms while you were in the ER. You should start Augmentin 875mg twice a day for 10 days in the am. We also prescribed meclizine that you may take for dizziness, and hydrocodone that you may cautiously for severe pain. They are at [facility] in [place]. Return to the ER if you have new or worsening symptoms. - Billing Disposition and Condition Disposition: HOME The documentation as recorded by the Michele prakash Julia accurately reflects the service I personally performed and the decisions made by me, Balwinder Landry MD.
--- NOTE | 2017-12-25 08:58 | ED ---
Jose Daniel Encarnacion Tiffany, scribed for Yi Garza MD on 12/24/17 at 2002 . Progress - Progress Note Progress Note: Patient signed out from Dr. Landry awaiting results of pain medications. States that she does not feel 100% but does feel better than when she came in. Rates pain 5/10 in severity upon evaluation. Reports dizziness but not as bad as before. Patient given update on test/lab results and discharge plan. Advised to follow up with ENT. Physical Exam: Pt alert, mild pain distress. HEENT: Pain behind right ear. PERRL EOMI. Neck supple Cor S1S2 lungs clear. Extrem: moves all extrem well. Neuro: non focal, speech clear. Ambulatory without limp. Course/Dx - Course Course Of Treatment: Allergies noted. Patients medications reviewed this visit. Patient is signed out from Dr. Landry. Upon evaluation, patient states feeling better than she did before she came in. Discussed test results and discharge plan with patient. She will be sent home with prescriptions for Augmentin, Thompson, Antivert. Patient agreeable to discharge. Advised to follow up with ENT, definite. - Diagnoses Provider Diagnoses: Acute headache, Mastoiditis Discharge - Sign-Out/Discharge Documenting (check all that apply): Discharge/Admit/Transfer - home - Discharge Plan Condition: Stable Disposition: HOME Prescriptions: Amoxicillin/Clavulanate TAB* [Augmentin TAB 875*] 875 mg PO BID #20 tab HYDROcodone/ACETAMIN 5-325 MG* [Thompson 5-325 TAB*] 1 tab PO Q4H PRN #6 tab MDD 6 PRN Reason: Severe Pain Meclizine TAB* [Antivert 12.5 TAB*] 25 mg PO TID #20 tab Patient Education Materials: Acute Headache (ED), Mastoiditis (ED) Referrals: Elie Richard MD [Medical Doctor] - As Soon As Possible (Follow up with Dr. Richard in his office as soon as possible.) Additional Instructions: Dr. Landry spoke with Dr. Richard, the research methodologist. He will see you in follow up. He thinks the fluid in the mastoid is possibly an incidental finding, but advises that we treat it, and have you follow up. You were given your first dose of antibiotics via IV, ceftriaxone 2gms. You also had meclizine, benadryl, toradol and reglan and IV fluids for your symptoms while you were in the ER. You should start Augmentin 875mg twice a day for 10 days in the am. We also prescribed meclizine that you may take for dizziness, and hydrocodone that you may cautiously for severe pain. They are at [facility] in [place]. Return to the ER if you have new or worsening symptoms. - Billing Disposition and Condition Condition: STABLE Disposition: HOME The documentation as recorded by the Jose Daniel prakash Tiffany accurately reflects the service I personally performed and the decisions made by me, Yi Garza MD.
== END 2017-12-24 20:08 | disposition home or self-care (01) ==
LOC: ED 13:44
DX: R51 Headache (principal); H70.90 Unspecified mastoiditis, unspecified ear; R42 Dizziness and giddiness
CPT/HCPCS: 36415; 70450; 80053; 84702; 85025; 86308; 87502; 87651; 96365; 96374; 96375; 99283; A9270-GY; J0696; J1200; J1885; J2765

== ENCOUNTER 2018-06-13 09:30 | Emergency (ER) | payer BC ==
[2018-06-13 09:40] VITALS: BP 98/68
--- NOTE | 2018-06-13 10:17 | UC ---
Throat Pain/Nasal Iker HPI - HPI Summary HPI Summary: 32-year-old woman comes in with sinus congestion and sinus pressure ear pain. Symptoms started as upper respiratory tract infection symptoms about 3 weeks ago. The symptoms continued and gotten worse. She's had some chills no fevers. She was using Flonase nasal spray that made her nose feels well also she stopped. She is not a smoker. - History of Current Complaint Chief Complaint: UCEar Stated Complaint: EAR ACHE Time Seen by Provider: 06/13/18 09:57 Hx Last Menstrual Period: 10/19/17 Pain Intensity: 7 - Allergies/Home Medications Allergies/Adverse Reactions: Allergies Allergy/AdvReac Type Severity Reaction Status Date / Time clindamycin Allergy Mild Hives Verified 06/13/18 09:41 Home Medications: Home Medications Pseudoephedrine HCl [Sudafed] 30 mg PO 06/13/18 [History] PMH/Surg Hx/FS Hx/Imm Hx Other History Of: Negative For: HIV, Hepatitis B, Hepatitis C, Anticoagulant Therapy - Surgical History Surgical History: Yes Surgery Procedure, Year, and Place: TONSILLECTOMY 2013, DENTAL EXTRACTION,TUBAL LIGATION, ECTOPIC SURGERY - Family History Known Family History: Negative: Cardiac Disease, Hypertension, Diabetes - Social History Alcohol Use: Occasionally Alcohol Amount: 2 x month Substance Use Type: None Smoking Status (MU): Never Smoked Tobacco - Immunization History Most Recent Influenza Vaccination: refused Most Recent Tetanus Shot: UTD Review of Systems Constitutional: Chills Skin: Negative Eyes: Negative ENT: Sore Throat, Ear Ache, Nasal Discharge, Sinus Congestion Respiratory: Cough Cardiovascular: Negative Gastrointestinal: Negative Motor: Negative Neurovascular: Negative Musculoskeletal: Negative Neurological: Negative Psychological: Negative Is Patient Immunocompromised?: No All Other Systems Reviewed And Are Negative: Yes Physical Exam Triage Information Reviewed: Yes Appearance: Well-Appearing, No Pain Distress, Well-Nourished Vital Signs: Initial Vital Signs Temp 97.5 F 06/13/18 09:35 Pulse 66 06/13/18 09:35 Resp 18 06/13/18 09:35 BP 98/68 06/13/18 09:35 Pulse Ox 99 06/13/18 09:35 Vital Signs Reviewed: Yes Eye Exam: Normal Eyes: Positive: Conjunctiva Clear ENT: Positive: Pharyngeal erythema, Nasal congestion, Nasal drainage, TM dull Neck exam: Normal Neck: Positive: Supple Respiratory Exam: Normal Respiratory: Positive: Lungs clear, Normal breath sounds, No respiratory distress Cardiovascular: Positive: RRR Musculoskeletal Exam: Normal Musculoskeletal: Positive: Strength Intact, ROM Intact Neurological Exam: Normal Neurological: Positive: Alert, Muscle Tone Normal Psychological Exam: Normal Psychological: Positive: Age Appropriate Behavior Skin Exam: Normal Throat Pain/Nasal Course/Dx - Course Course Of Treatment: SX > 10 DAYS. Patient has been on the inhaler breo ellipta which is helped with her asthma/cough for the past. She's run out of that prescription I'm going to prescribe her another today. Follow-up with primary care doctor recheck sooner if worse. - Differential Dx/Diagnosis Provider Diagnoses: SINUSITIS Discharge - Sign-Out/Discharge Documenting (check all that apply): Patient Departure All imaging exams completed and their final reports reviewed: No Studies - Discharge Plan Condition: Stable Disposition: HOME Prescriptions: Amoxicillin/Clavulanate TAB* [Augmentin TAB 875*] 875 mg PO BID #20 tab Fluticasone/Vilanterol MDI(NF) [Breo Ellipta MDI 200/25(NF)] 1 inh PO DAILY #1 inh Patient Education Materials: Sinusitis (ED), Asthma (ED) Referrals: Brock Grande MD [Primary Care Provider] - Additional Instructions: FOLLOW UP WITH YOUR DOCTOR IF NOT COMPLETELY IMPROVED. GET RECHECKED FOR ANY WORSENING OF YOUR CONDITION OR QUESTIONS OR CONCERNS. - Billing Disposition and Condition Condition: STABLE Disposition: Home
== END 2018-06-13 10:25 | disposition home or self-care (01) ==
LOC: UCEAST 09:30
DX: J32.9 Chronic sinusitis, unspecified (principal); J45.909 Unspecified asthma, uncomplicated; Z88.1 Allergy status to other antibiotic agents
CPT/HCPCS: 99212; G0463

== ENCOUNTER 2018-08-24 07:44 | Emergency (ER) | payer BC ==
[2018-08-24 07:57] VITALS: BP 117/67
--- NOTE | 2018-08-24 08:25 | UC ---
Dental HPI - HPI Summary HPI Summary: 32 yo W female h/o severe dental caries in tooth #15 (left 2nd molar) p/w with left facial pain and tenderness worsened over last 2-3 days but pain was present for 2 months. States she needs to have her tooth pulled but never got around to it.Pain is severe, radiates to maxilla and below left mandible - History of Current Complaint Chief Complaint: UCDentalProblem Stated Complaint: DENTAL PAIN Time Seen by Provider: 08/24/18 08:08 Hx Obtained From: Patient Hx Last Menstrual Period: yesterday end date ?: No Onset/Duration: Sudden Onset, Lasting Days Severity: Severe Pain Intensity: 10 Aggravating Factor(s): Chewing Alleviating Factor(s): Nothing Related History: Previous Dental Care on Same Tooth - Allergies/Home Medications Allergies/Adverse Reactions: Allergies Allergy/AdvReac Type Severity Reaction Status Date / Time clindamycin Allergy Mild Hives Verified 06/13/18 09:41 Home Medications: Home Medications Meclizine TAB* [Antivert 12.5 TAB*] 25 mg PO TID PRN 08/24/18 [History] PMH/Surg Hx/FS Hx/Imm Hx Other History Of: Negative For: HIV, Hepatitis B, Hepatitis C, Anticoagulant Therapy - Surgical History Surgical History: Yes Surgery Procedure, Year, and Place: TONSILLECTOMY 2013, DENTAL EXTRACTION,TUBAL LIGATION, ECTOPIC SURGERY - Family History Known Family History: Negative: Cardiac Disease, Hypertension, Diabetes - Social History Alcohol Use: Occasionally Alcohol Amount: 2 x month Substance Use Type: None Smoking Status (MU): Never Smoked Tobacco - Immunization History Most Recent Influenza Vaccination: refused Most Recent Tetanus Shot: UTD Review of Systems All Other Systems Reviewed And Are Negative: Yes Constitutional: Positive: Negative Skin: Positive: Negative Eyes: Positive: Negative ENT: Positive: Dental Pain Respiratory: Positive: Negative Cardiovascular: Positive: Negative Gastrointestinal: Positive: Negative Genitourinary: Positive: Negative Motor: Positive: Negative Neurovascular: Positive: Negative Musculoskeletal: Positive: Negative Neurological: Positive: Negative Psychological: Positive: Negative Physical Exam - Summary Physical Exam Summary: Vital Signs Reviewed: Yes Skin: Positive: Warm Head/Face: Positive: Normal Head/Face Inspection Eyes: Positive: Normal ENT: Positive: Tooth #15- broken off black caries with gingival inflammation Neck: Positive: Supple Respiratory/Lung Sounds: Positive: Clear to Auscultation Cardiovascular: Positive: Normal, RRR, S1, S2 Abdomen Description: Positive: Nontender Musculoskeletal: Positive: Normal Neurological: Positive: Normal Psychiatric: Positive: Normal, Affect/Mood Appropriate Vital Signs: Initial Vital Signs Temp 36.4 C 08/24/18 07:51 Pulse 70 08/24/18 07:51 Resp 16 08/24/18 07:51 BP 117/67 08/24/18 07:51 Pulse Ox 100 08/24/18 07:51 Dental Complaint Course/Dx - Differential Dx/Diagnosis Differential Diagnosis/Dx: Dental Abscess, Dental Caries, Fractured Tooth Provider Diagnosis: Tooth pain, Dental abscess Discharge - Sign-Out/Discharge Documenting (check all that apply): Patient Departure All imaging exams completed and their final reports reviewed: Yes - Discharge Plan Condition: Stable Disposition: HOME Prescriptions: Amoxicillin/Clavulanate TAB* [Augmentin TAB 875*] 875 mg PO BID 10 Days tab NS oxyCODONE/Acetamin 5/325 MG* [Percocet 5/325 TAB*] 1 tab PO Q8H PRN 3 Days #13 tab MDD 3 PRN Reason: Pain Patient Education Materials: Dental Abscess (ED) Forms: *Work Release Referrals: Brock Grande MD [Primary Care Provider] - Additional Instructions: follow up with dentist [facility] - Billing Disposition and Condition Condition: STABLE Disposition: Home
== END 2018-08-24 08:31 | disposition home or self-care (01) ==
LOC: UCEAST 07:44
DX: K04.7 Periapical abscess without sinus (principal); K08.89 Other specified disorders of teeth and supporting structures; Z88.1 Allergy status to other antibiotic agents
CPT/HCPCS: 99212; G0463

== ENCOUNTER 2018-12-08 15:41 | Emergency (ER) | payer BC ==
[2018-12-08 17:25] VITALS: BP 124/63
--- NOTE | 2018-12-08 17:32 | UC ---
Throat Pain/Nasal Iker HPI - HPI Summary HPI Summary: 33 y/o female presents to the urgent care c/o sinus congestion, sore throat, ears congested, chest congestion, dizzy when bending over, took inhalation of Abrio with some relief. Has chills. States symptoms for 10 days. Taking Mucinex, Benadryl. Also left upper jaw pain from bad tooth, seen previouslly for antibiotic and pain meds 1 month ago. - History of Current Complaint Chief Complaint: UCGeneralIllness Stated Complaint: EAR ACHE, AND SORE THROAT Time Seen by Provider: 12/08/18 17:19 Hx Obtained From: Patient Hx Last Menstrual Period: 2 days ago Pain Intensity: 9 - Allergies/Home Medications Allergies/Adverse Reactions: Allergies Allergy/AdvReac Type Severity Reaction Status Date / Time clindamycin Allergy Mild Hives Verified 12/08/18 17:25 PMH/Surg Hx/FS Hx/Imm Hx Other History Of: Negative For: HIV, Hepatitis B, Hepatitis C, Anticoagulant Therapy - Surgical History Surgical History: Yes Surgery Procedure, Year, and Place: TONSILLECTOMY 2012, DENTAL EXTRACTION,TUBAL LIGATION, ECTOPIC SURGERY. anxiety - Family History Known Family History: Negative: Cardiac Disease, Hypertension, Diabetes - Social History Alcohol Use: Rare Alcohol Amount: 2 x month Substance Use Type: None Smoking Status (MU): Never Smoked Tobacco - Immunization History Most Recent Influenza Vaccination: refused Most Recent Tetanus Shot: UTD Physical Exam Vital Signs: Initial Vital Signs Temp 98.1 F 12/08/18 17:20 Pulse 63 12/08/18 17:20 Resp 17 12/08/18 17:20 BP 124/63 12/08/18 17:20 Pulse Ox 98 12/08/18 17:20 Throat Pain/Nasal Course/Dx - Differential Dx/Diagnosis Differential Diagnosis/HQI/PQRI: Influenza, Laryngitis, Sinusitis, URI, Other - toothache, dental abscess Provider Diagnosis: Acute bacterial sinusitis, Toothache Discharge - Discharge Plan Condition: Stable Disposition: HOME Prescriptions: Amoxicillin PO (*) [Amoxicillin 875 MG (*)] 875 mg PO BID #20 tab Fluticasone NASAL SPRAY 50MCG* [Flonase NASAL SPRAY 50MCG*] 2 spray BOTH NARES DAILY #1 btl Ibuprofen TAB* [Motrin TAB* 800 MG] 800 mg PO Q6H PRN #30 tab PRN Reason: Pain Patient Education Materials: Sinusitis (ED), Toothache (ED) Referrals: Brock Grande MD [Primary Care Provider] - 3 Days Additional Instructions: 1- Please increase fluid intake and rest. take full course of antibiotic to avoid resistance. Take yogurt w/ probiotics or culturelle to protect your GI system 2-Use Flonase as directed to help drain fluid. Also buy saline drops to clear sinuses 3-Take Ibuprofen PO q6-8hrs prn after meals to alleviate pain. Please f/u w/ your Dentist as soon as possible for furtehr management in your fracture molar 4-F/u w/ your PCP in 3 days if symptoms do not improve for further management and treatment - Billing Disposition and Condition Condition: STABLE Disposition: Home
== END 2018-12-08 18:00 | disposition home or self-care (01) ==
LOC: UCEAST 15:41
DX: J01.90 Acute sinusitis, unspecified (principal); K08.89 Other specified disorders of teeth and supporting structures; Z88.1 Allergy status to other antibiotic agents
CPT/HCPCS: 99212; G0463

== ENCOUNTER 2019-03-28 17:30 | Emergency (ER) | payer BC ==
[2019-03-28 17:58] VITALS: BP 115/72
--- NOTE | 2019-03-28 18:00 | UC ---
Throat Pain/Nasal Iker HPI - HPI Summary HPI Summary: 33 yo female presents with sinus pain/pressure/congestion, post nasal drip, and dry cough for the last 1.5 weeks. She has tried alicia seltzer, flonase, and sudafed with little relief of her symptoms. Today she had a few episodes of loose stools and decreased appetite. She has felt feverish, but has not taken her temperature. She denies SOB, chest pain, abdominal pain, vomiting, dysuria, flank or back pain. She also mentions that 1 month ago she was hit in the right lower leg with a softball and since that time has had pain in her calf and has noticed a lump that wont go down to her anterior hu. Painful to touch. - History of Current Complaint Chief Complaint: UCRespiratory Stated Complaint: SINUS CONGESTION Time Seen by Provider: 03/28/19 17:59 Hx Obtained From: Patient Hx Last Menstrual Period: 1 WEEK AGO Onset/Duration: Gradual Onset Severity: Severe Pain Intensity: 10 Pain Scale Used: 0-10 Numeric - Allergies/Home Medications Allergies/Adverse Reactions: Allergies Allergy/AdvReac Type Severity Reaction Status Date / Time clindamycin Allergy Mild Hives Verified 03/28/19 17:58 Home Medications: Home Medications Dm/PE/Acetaminophen/Doxylamine [Alicia-Mays Plus Allerg-Cough] 1 each PO ONCE PRN 03/28/19 [History Confirmed 03/28/19] Pseudoephedrine TAB* [Sudafed TAB*] 60 mg PO ONCE PRN 03/28/19 [History Confirmed 03/28/19] PMH/Surg Hx/FS Hx/Imm Hx - Additional Past Medical History Additional PMH: None Other History Of: Negative For: HIV, Hepatitis B, Hepatitis C, Anticoagulant Therapy - Surgical History Surgical History: Yes Surgery Procedure, Year, and Place: TONSILLECTOMY 2013, DENTAL EXTRACTION,TUBAL LIGATION, ECTOPIC SURGERY - Family History Known Family History: Positive: Cardiac Disease, Hypertension, Diabetes - Social History Occupation: Employed Full-time Lives: With Family Alcohol Use: Occasionally Alcohol Amount: 2 x month Substance Use Type: None Smoking Status (MU): Never Smoked Tobacco - Immunization History Most Recent Influenza Vaccination: refused Most Recent Tetanus Shot: UTD Review of Systems All Other Systems Reviewed And Are Negative: Yes Constitutional: Positive: Fatigue Skin: Positive: Negative Eyes: Positive: Negative ENT: Positive: Nasal Discharge, Sinus Congestion, Sinus Pain/Tenderness Respiratory: Positive: Cough Cardiovascular: Positive: Negative Gastrointestinal: Positive: Nausea Genitourinary: Positive: Negative Motor: Positive: Negative Neurovascular: Positive: Negative Musculoskeletal: Positive: Other: - right lower leg pain Neurological: Positive: Headache Psychological: Positive: Negative Physical Exam - Summary Physical Exam Summary: GENERAL: NAD. WDWN. No pain distress. SKIN: No rashes, sores, lesions, or open wounds. HEENT: Head: AT/NC Eyes: EOM intact. Conjunctiva clear without inflammation or discharge. Ears: Hearing grossly normal. TMs intact, no bulging, erythema, or edema. Nose: Nasal mucosa mildly swollen and erythematous with yellow/ clear discharge. TTP maxillary and frontal sinus. Positive post nasal drip Throat: Posterior oropharynx without exudates, erythema, or tonsillar enlargement. Uvula midline. NECK: Supple. Nontender. No lymphadenopathy. CHEST: CTAB. No r/r/w. No accessory muscle use. Breathing comfortably and in no distress. CV: RRR. Without m/r/g. Pulses intact PT and DP. Cap refill <2seconds MSK: RIGHT LOWER LEG: Anterior tibia with 2.0cm healing hematoma. Calf TTP throughout without specific point tenderness. No edema. Positive Silvia sign. Diffuse varicose veins NEURO: Alert. Sensations intact and symmetric B/L LEs PSYCH: Age appropriate behavior. Triage Information Reviewed: Yes Vital Signs: Initial Vital Signs Temp 98.1 F 03/28/19 17:55 Pulse 90 03/28/19 17:55 Resp 16 03/28/19 17:55 BP 115/72 03/28/19 17:55 Pulse Ox 98 03/28/19 17:55 Vital Signs Reviewed: Yes Throat Pain/Nasal Course/Dx - Course Course Of Treatment: Suspect sinusitis. She states that she tolerates zpak well and is requesting this today. She usually gets a yeast infection with anbx, therefore will also rx for diflucan. She is requesting zofran for her nausea. Also requesting a note for work for the next 4 days. I suspect her right leg is a healing hematoma, but I she is concerned about a blood clot, therefore an US was ordered today. US: IMPRESSION: No acute findings. No evidence of deep vein thrombosis. - Differential Dx/Diagnosis Provider Diagnosis: Sinusitis, Leg hematoma Discharge - Sign-Out/Discharge Documenting (check all that apply): Patient Departure All imaging exams completed and their final reports reviewed: Yes - Discharge Plan Condition: Stable Disposition: HOME Prescriptions: DOXYcycline CAP(*) [DOXYcycline 100MG CAP(*)] 100 mg PO BID #14 cap Fluconazole 150 MG TAB* [Diflucan 150 MG TAB*] 150 mg PO ONCE #1 tablet Ondansetron ODT TAB* [Zofran 4 MG Odt TAB*] 4 mg PO Q8H PRN #9 tab.odt PRN Reason: Nausea Patient Education Materials: Sinusitis (ED), Hematoma (ED) Forms: *Work Release Referrals: Brock Grande MD [Primary Care Provider] - Additional Instructions: If you develop a fever, shortness of breath, chest pain, new or worsening symptoms - please call your PCP or go to the ED immediately. Your ultrasound was negative for a blood clot today. - Billing Disposition and Condition Condition: STABLE Disposition: Home
== END 2019-03-28 19:35 | disposition home or self-care (01) ==
LOC: UCEAST 17:30
DX: J32.9 Chronic sinusitis, unspecified (principal); S80.11XA Contusion of right lower leg, initial encounter; W21.07XA Struck by softball, initial encounter; Y93.64 Activity, baseball; Y92.320 Baseball field as the place of occurrence of the external cause; Y99.8 Other external cause status
CPT/HCPCS: 99212; G0463

== ENCOUNTER 2019-06-14 13:22 | Emergency (ER) | payer BC ==
[2019-06-14 13:49] VITALS: BP 117/73
--- NOTE | 2019-06-14 13:57 | UC ---
Dental HPI - HPI Summary HPI Summary: 33-year-old female presents with complaints of left upper dental pain for the past 5 days. Patient has a fractured left upper first bicuspid that she has been seen for in the past at this facility which she has failed to have addressed. Patient states yesterday she noticed a tender, red, swollen area to the gum above the tooth that has since subsided. No drainage noted. Denies fever, chills, or trismus. - History of Current Complaint Chief Complaint: UCDentalProblem Stated Complaint: DENTAL Time Seen by Provider: 06/14/19 13:47 Hx Obtained From: Patient Hx Last Menstrual Period: 06/07/19 Pain Intensity: 10 - Allergies/Home Medications Allergies/Adverse Reactions: Allergies Allergy/AdvReac Type Severity Reaction Status Date / Time clindamycin Allergy Mild Hives Verified 06/14/19 13:45 PMH/Surg Hx/FS Hx/Imm Hx Previously Healthy: Yes - Denies significant PMH Other History Of: Negative For: HIV, Hepatitis B, Hepatitis C, Anticoagulant Therapy - Surgical History Surgical History: Yes Surgery Procedure, Year, and Place: TONSILLECTOMY 2013, DENTAL EXTRACTION,TUBAL LIGATION, ECTOPIC SURGERY - Family History Known Family History: Positive: Cardiac Disease, Hypertension, Diabetes - Social History Occupation: Employed Full-time Lives: With Family Alcohol Use: Occasionally Alcohol Amount: 2 x month Substance Use Type: None Smoking Status (MU): Never Smoked Tobacco - Immunization History Most Recent Influenza Vaccination: refused Most Recent Tetanus Shot: UTD Review of Systems All Other Systems Reviewed And Are Negative: Yes Constitutional: Negative: Fever, Chills ENT: Positive: Dental Pain Respiratory: Positive: Negative Cardiovascular: Positive: Negative Gastrointestinal: Positive: Negative Genitourinary: Positive: Negative Musculoskeletal: Positive: Negative Neurological: Positive: Negative Is Patient Immunocompromised?: No Physical Exam - Summary Physical Exam Summary: GENERAL APPEARANCE: Well developed, well nourished, alert and cooperative, and appears to be in no acute distress. HEAD: Normocephalic. No facial swelling noted. MOUTH/THROAT: Pharynx normal. Surgically absent tonsils. Uvula midline. Fractured left upper 1st bicuspid with severe decay. Mild gingival erythema without induration, fluctuance, or drainage noted. No trismus. NECK: Neck supple, non-tender without lymphadenopathy. CARDIAC: Normal S1 and S2. No S3, S4 or murmurs. Rhythm is regular. There is no peripheral edema, cyanosis or pallor. Extremities are warm and well perfused. Capillary refill is less than 2 seconds. Peripheral pulses intact. LUNGS: Clear to auscultation without rales, rhonchi, wheezing or diminished breath sounds. ABDOMEN: Positive bowel sounds. Soft, nondistended, nontender. No guarding or rebound. No masses or hepatosplenomegally. MUSKULOSKELETAL: ROM intact to all extremities. No joint erythema or tenderness. Normal muscular development. Normal gait. SKIN: Skin normal color, texture and turgor with no lesions or eruptions. Triage Information Reviewed: Yes Vital Signs: Initial Vital Signs Temp 98.5 F 06/14/19 13:46 Pulse 68 06/14/19 13:46 Resp 15 06/14/19 13:46 BP 117/73 06/14/19 13:46 Pulse Ox 100 06/14/19 13:46 Vital Signs Reviewed: Yes Dental Complaint Course/Dx - Course Course Of Treatment: 33-year-old female presents with complaints of left upper dental pain for the past 5 days. Patient has a fractured left upper first bicuspid that she has been seen for in the past at this facility which she has failed to have addressed. Patient states yesterday she noticed a tender, red, swollen area to the gum above the tooth that has since subsided. No drainage noted. Denies fever, chills, or trismus. Afebrile. Vital signs stable. Patient had a fractured left upper 1st bicuspid with severe decay. Mild gingival erythema without induration, fluctuance, or drainage noted. No trismus. No facial swelling. No cervical lymphadenopathy. Remainder of exam was unremarkable. Will treat for left upper dental pain likely to a dental infection. Patient has been prescribed Augmentin 875 mg twice a day 10 days. I have provided her with a prescription for ibuprofen 800 mg 1 tab every 8 hours for pain and a short-term prescription of hydrocodoneacetaminophen 5 mg/325 mg 1 tablet every 8 hours as needed for severe pain. She was given a dose in the clinic. She is to follow-up with her dentist at next available appointment. Anticipatory guidance and warning symptoms were reviewed with the patient. Verbalizes understanding agrees with plan of care. - Differential Dx/Diagnosis Differential Diagnosis/Dx: Dental Abscess, Dental Caries, Fractured Tooth, Odontogenic Pain, Peridontic Disease Provider Diagnosis: Pain, dental Discharge ED - Sign-Out/Discharge Documenting (check all that apply): Patient Departure All imaging exams completed and their final reports reviewed: No Studies - Discharge Plan Condition: Stable Disposition: HOME Prescriptions: Amoxicillin/Clavulanate TAB* [Augmentin TAB 875*] 875 mg PO BID #20 tab Fluconazole 150 MG (NF) [Diflucan 150 mg (NF)] 150 mg PO ONCE #1 tab Hydrocodone/Acetaminophen [Hydrocodone/Acetaminophen 5-325 mg] 1 tab PO Q8HR PRN #6 tab MDD 3 PRN Reason: Pain - Severe Ibuprofen TAB* [Advil TAB*] 800 mg PO Q6H PRN #30 tab PRN Reason: Pain - Mild Patient Education Materials: Toothache (ED) Referrals: Brock Grande MD [Primary Care Provider] - Additional Instructions: Start Augmentin 875 mg 1 tab twice a day for 10 days. Take with food to avoid upset stomach. Be sure to complete the entire course even if feeling better. Take acetaminophen (Tylenol) or ibuprofen (Advil, Motrin) according to directions as needed for pain. Take hydrocodone-acetaminophen 5 mg/325 mg 1 tablet every 8 hours as needed for severe pain. You are given a dose in the clinic at approximately 2:00 PM. Do not take this medication and drive or operate machinery as it will cause drowsiness. Be sure to rinse your mouth out with a warm salt water solution after every time you eat to remove any debris. Make an appointment with your dentist at next available appointment. Seek immediate medical attention in the emergency room if you develop fever greater than 100.5 F, you are unable to open of close your mouth, are unable to swallow, have difficulty breathing, or any worsening of symptoms. - Billing Disposition and Condition Condition: STABLE Disposition: Home
[2019-06-14] MEDS ORDERED: HYDROcodone/ACETAMIN 5-325 MG* 1 TAB PO ONE (14:01)
== END 2019-06-14 14:13 | disposition home or self-care (01) ==
LOC: UCCORT 13:22
DX: K08.89 Other specified disorders of teeth and supporting structures (principal); Z88.1 Allergy status to other antibiotic agents
CPT/HCPCS: 99212; G0463

== ENCOUNTER 2019-08-25 16:27 | Emergency (ER) | payer BC ==
[2019-08-25 18:00] VITALS: BP 109/74
--- NOTE | 2019-08-25 18:05 | UC ---
Complaint Female HPI - History Of Current Complaint Chief Complaint: UCGU Stated Complaint: BURNING URINATION Time Seen by Provider: 08/25/19 18:04 Hx Last Menstrual Period: 08/04/2019 Pain Intensity: 10 - Allergies/Home Medications Allergies/Adverse Reactions: Allergies Allergy/AdvReac Type Severity Reaction Status Date / Time clindamycin Allergy Mild Hives Verified 08/25/19 18:00 Home Medications: Home Medications Ibuprofen 800 mg PO 08/25/19 [History] Miconazole Nitrate [Monistat 7] 08/25/19 [History] PMH/Surg Hx/FS Hx/Imm Hx - Additional Past Medical History Additional PMH: None Other History Of: Negative For: HIV, Hepatitis B, Hepatitis C, Anticoagulant Therapy - Surgical History Surgical History: Yes Surgery Procedure, Year, and Place: TONSILLECTOMY 2012, DENTAL EXTRACTION,TUBAL LIGATION, ECTOPIC SURGERY - Family History Known Family History: Positive: Cardiac Disease, Hypertension, Diabetes - Social History Lives: With Family Alcohol Use: Occasionally Alcohol Amount: 2 x month Substance Use Type: None Smoking Status (MU): Never Smoked Tobacco - Immunization History Most Recent Influenza Vaccination: refused Most Recent Tetanus Shot: UTD Review of Systems All Other Systems Reviewed And Are Negative: No Constitutional: Positive: Negative Skin: Positive: Negative Eyes: Positive: Negative ENT: Positive: Dental Pain Respiratory: Positive: Negative Cardiovascular: Positive: Negative Gastrointestinal: Positive: Negative Genitourinary: Positive: Vaginal/Penile Itching, Vaginal/Penile Discharge Neurological: Positive: Negative Psychological: Positive: Negative Physical Exam - Summary Physical Exam Summary: GENERAL: NAD. WDWN. No pain distress. SKIN: No rashes, sores, lesions, or open wounds. HEENT: Head: AT/NC Throat: Posterior oropharynx without exudates, erythema, or tonsillar enlargement. Uvula midline. NECK: Supple. Nontender. No lymphadenopathy. CHEST: CTAB. No accessory muscle use. Breathing comfortably and in no distress. CV: RRR. Pulses intact. Cap refill <2seconds ABDOMEN: Soft. NTTP. No distention or guarding. No CVA tenderness. Bowel sounds present NEURO: Alert. PSYCH: Age appropriate behavior. Triage Information Reviewed: Yes Vital Signs: Initial Vital Signs Temp 98.9 F 08/25/19 17:53 Pulse 113 08/25/19 17:53 Resp 16 08/25/19 17:53 BP 109/74 08/25/19 17:53 Pulse Ox 98 08/25/19 17:53 Vital Signs Reviewed: Yes Discharge ED - Sign-Out/Discharge Documenting (check all that apply): Patient Departure All imaging exams completed and their final reports reviewed: No Studies - Discharge Plan Condition: Stable Disposition: HOME Patient Education Materials: Yeast Infection (ED), Dental Abscess (ED) Referrals: Brock Grande MD [Primary Care Provider] - Additional Instructions: If you develop a fever, shortness of breath, chest pain, new or worsening symptoms - please call your PCP or go to the ED immediately. - Billing Disposition and Condition Condition: STABLE Disposition: Home
--- NOTE | 2019-08-25 19:23 | UC ---
Complaint Female HPI - HPI Summary HPI Summary: here with 2 concerns: --dental abscess treated 2 weeks ago and she stopped antibiotic due to severity of vaginal itch and discharge which began secondary to antibiotics. --vaginal itching and discharge not responding to otc monistat. She would like to be tested for STI's although she has been in a stable relationship x 6 years. She has vaginal discharge, and occasional low abdominal pain which she attributes to eating gas producing vegetables. - History Of Current Complaint Chief Complaint: [facility] Stated Complaint: BURNING URINATION Time Seen by Provider: 08/25/19 18:04 Hx Obtained From: Patient Hx Last Menstrual Period: 08/04/2019 Onset/Duration: Gradual Onset, Lasting Days Timing: Constant Severity Initially: Moderate Severity Currently: Moderate Pain Intensity: 10 Character: Burning Aggravating Factor(s): [place], Urination Alleviating Factor(s): Other - flushing perineum. - Allergies/Home Medications Allergies/Adverse Reactions: Allergies Allergy/AdvReac Type Severity Reaction Status Date / Time clindamycin Allergy Mild Hives Verified 08/25/19 18:00 Home Medications: Home Medications Ibuprofen 800 mg PO 08/25/19 [History] Miconazole Nitrate [Monistat 7] 08/25/19 [History] PMH/Surg Hx/FS Hx/Imm Hx Previously Healthy: Yes Other History Of: Negative For: HIV, Hepatitis B, Hepatitis C, Anticoagulant Therapy - Surgical History Surgical History: Yes Surgery Procedure, Year, and Place: TONSILLECTOMY 2012, DENTAL EXTRACTION,TUBAL LIGATION, ECTOPIC SURGERY - Family History Known Family History: Positive: Cardiac Disease, Hypertension, Diabetes - Social History Occupation: Employed Full-time Lives: With Family Alcohol Use: Occasionally Alcohol Amount: 2 x month Substance Use Type: None Smoking Status (MU): Never Smoked Tobacco - Immunization History Most Recent Influenza Vaccination: refused Most Recent Tetanus Shot: UTD Review of Systems All Other Systems Reviewed And Are Negative: Yes Constitutional: Positive: Negative Skin: Positive: Negative Eyes: Positive: Negative ENT: Positive: Negative Respiratory: Positive: Negative Cardiovascular: Positive: Negative Genitourinary: Positive: Negative, Vaginal/Penile Burning, Vaginal/Penile Itching, Vaginal/Penile Discharge Motor: Positive: Negative Neurovascular: Positive: Negative Musculoskeletal: Positive: Negative Neurological: Positive: Negative Psychological: Positive: Negative Is Patient Immunocompromised?: No Physical Exam Triage Information Reviewed: Yes Appearance: Well-Appearing, No Pain Distress Vital Signs: Initial Vital Signs Temp 98.9 F 08/25/19 17:53 Pulse 113 08/25/19 17:53 Resp 16 08/25/19 17:53 BP 109/74 08/25/19 17:53 Pulse Ox 98 08/25/19 17:53 Eye Exam: Normal ENT: Positive: Pharynx normal Neck: Positive: Supple, Nontender, No Lymphadenopathy Respiratory: Positive: Lungs clear, Normal breath sounds, No respiratory distress Cardiovascular: Positive: RRR, No Murmur Abdomen Description: Positive: Nontender, No Organomegaly, Soft Pelvic Exam: Positive: External Exam Normal, No Cerv. Motion Tender, Discharge - moderate white discharge. Negative: Active Bleeding, Tender w/ Cervical Motion, Tender Adnexa, Tender Uterus Musculoskeletal Exam: Normal Musculoskeletal: Positive: Strength Intact Neurological Exam: Normal Neurological: Positive: Alert, Muscle Tone Normal Psychological Exam: Normal Skin Exam: Normal Images Dental: 1 - dental abscess at apex of gum 2 - deep decay Complaint Female Dx - Course Course Of Treatment: Pen VK for dental infection diflucan x 5 days, break x 2, then repeat x 5 days. 2% hc cream to perineum to relieve irritation and itch. - Differential Dx/Diagnosis Provider Diagnosis: Yeast vaginitis, Dental abscess Discharge ED - Sign-Out/Discharge Documenting (check all that apply): Patient Departure All imaging exams completed and their final reports reviewed: No Studies - Discharge Plan Condition: Stable Disposition: HOME Prescriptions: Fluconazole 100 MG TAB* [Diflucan 100 MG TAB*] 100 mg PO DAILY #10 tab Penicillin VK 500 MG TAB(NF) [Penicillin VK 500 mg Tab] 500 mg PO QID #28 tab Patient Education Materials: Dental Abscess (ED), Yeast Infection (ED) Referrals: Brock Grande MD [Primary Care Provider] - Additional Instructions: Use Pen VK for dental abscess, ensuring that you take the full course of treatment. Begin fluconazole. You have a 10 day supply. Please take once daily for 5 days, then take a 2-3 day break, then take for another 5 days. This will span beyond the antibiotic treatment for the dental infection. After cleansing , a light application of 1% hydrocortison cream can ease the sense of swelling and discomfort on the perineum. Please schedule dental follow up. Take iobuprofen 800mg 3 times daily for control of dental pain. - Billing Disposition and Condition Condition: STABLE Disposition: Home
--- NOTE | 2019-08-27 08:26 | UC ---
- Progress Note Progress Note: Vaginal DNA results from August 25, 2019 comes back positive for Gardnerella and negative for Jojo. Patient's on Diflucan For vaginitis. Patient's on penicillin for a dental abscess. Patient is allergic to clindamycin. Person call patient inform them of the results. I have called in a 5 day course of the MetroGel vaginal for the patient to start. I also wrote for one refill to be used as needed. Course/Dx - Diagnoses Provider Diagnoses: Yeast vaginitis, Dental abscess Discharge ED - Sign-Out/Discharge Documenting (check all that apply): Patient Departure All imaging exams completed and their final reports reviewed: No Studies - Discharge Plan Condition: Stable Disposition: HOME Prescriptions: Fluconazole 100 MG TAB* [Diflucan 100 MG TAB*] 100 mg PO DAILY #10 tab metroNIDAZOLE VAGINAL 0.75%* 1 applic VAGINAL BEDTIME 5 Days #5 dose Penicillin VK 500 MG TAB(NF) [Penicillin VK 500 mg Tab] 500 mg PO QID #28 tab Patient Education Materials: Dental Abscess (ED), Yeast Infection (ED) Referrals: Brock Grande MD [Primary Care Provider] - Additional Instructions: Use Pen VK for dental abscess, ensuring that you take the full course of treatment. Begin fluconazole. You have a 10 day supply. Please take once daily for 5 days, then take a 2-3 day break, then take for another 5 days. This will span beyond the antibiotic treatment for the dental infection. After cleansing , a light application of 1% hydrocortison cream can ease the sense of swelling and discomfort on the perineum. Please schedule dental follow up. Take iobuprofen 800mg 3 times daily for control of dental pain. - Billing Disposition and Condition Condition: STABLE Disposition: Home
[2019-08-28 13:44] LABS: Chlamydia trachomatis NAA Negative (Negative); Neisseria gonorrhoeae (GC) NAA Negative (Negative)
== END 2019-08-25 19:37 | disposition home or self-care (01) ==
LOC: UCEAST 16:27
DX: K04.7 Periapical abscess without sinus (principal); B37.3 Candidiasis of vulva and vagina; Z88.1 Allergy status to other antibiotic agents
CPT/HCPCS: 81003; 87480; 87491; 87510; 87591; 99212; G0463